=== PATIENT | female | born 1950 | race African-American/Black ===

== ENCOUNTER 2019-01-04 11:42 | Inpatient (IN) ==
--- NOTE | 2019-01-04 13:20 | Diag Imaging Result Doc PS360 ---
CHEST-PORTABLE - 01/04/2019 INDICATION: cough COMPARISON: 09/29/2017 FINDINGS: Lung volumes are severely low. There is nonspecific atelectasis or infiltrate in the lung bases particularly at the right lung base. No significant pleural effusion. Heart size is top normal. Stable densely calcified granulomas. IMPRESSION: Nonspecific findings. Electronically signed by Ryan Tamayo 01/04/2019 1:18 PM
[2019-01-04] MEDS ORDERED: NS 1,000 ML IV ONE ×2 (13:26→14:34)
[2019-01-04] MEDS ORDERED: ROCEPHIN 1 GM in NS 50 ML IV ONE (13:26)
[2019-01-04 13:27] LABS: ALLEN TEST YES; BE 0.8 mmoll (-3.0-3.0); BLOOD TYPE ARTERIAL; HCO3-(ACT) 25.4 mmoll (20.0-26.0); METHB 0.9 % (0.0-1.5); O2(CT) 18.3 mL/dL (15.0-23.0); O2HB 93.5 % (95.0-99.0); PO2(98.6) 69 mmHg (60-100); SAMPLE BLOOD; SAO2 96.3 % (95.0-100.0); THB 13.9 g/dL (11.5-17.4); pH(98.6) 7.34 (7.35-7.45)
[2019-01-04 13:29] LABS: MODALITY CANNULA; PCO2(98.6) 51 mmHg (35-45)
[2019-01-04 13:37] LABS: INR 1.14; PROTIME 15.5 Seconds (11.0-16.0)
[2019-01-04 13:38] LABS: BASO# 0.02 X1000 (0.0-0.2); BASO% 0.1 % (0.0-0.8); HEMATOCRIT 46.3 % (37.0-47.0); HEMOGLOBIN 14.5 g/dL (12.0-16.0); LYMPH# 2.08 X1000 (1.2-3.4); LYMPH% 14.6 % (20.5-51.1); MCHC 31.3 g/dL (33-37); MCV 92.6 FL (81-99); MONO# 2.74 X1000 (0.11-0.59); MONO% 19.2 % (1.7-9.3); NEUT% 66.1 % (42.2-75.2); PLT 103 X1000 (130-400); PTT 32.3 Seconds (22.3-41.8); WBC 14.24 X1000 (4.8-10.8)
[2019-01-04 13:48] LABS: CALCIUM 8.6 mg/dL (8.8-10.2); CREATININE 1.6 mg/dL (0.5-0.9); POTASSIUM 4.4 mmol/L (3.5-5.1); TOTAL BILIRUBIN 0.32 mg/dL (0.20-1.00); TOTAL PROTEIN 6.1 g/dL (6.3-8.3)
[2019-01-04 14:32] LABS: CK INDEX 1.9 (0.0-2.5); CK-MB 4.94 ng/mL (0.0-5.0)
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
[2019-01-04] MEDS ORDERED: CIPRO 400 MG/D5W 400 MG/200 ML IVPB IV ONE (14:35)
[2019-01-04] MEDS ORDERED: ZOSYN 3.375 GM in NS 50 ML IV ONE (14:36)
[2019-01-04 15:43] LABS: URINE SOURCE CATH
[2019-01-04 15:48] LABS: BILIRUBIN URINE SMALL (NEGATIVE); BLOOD URINE LARGE (NEGATIVE); COLOR YELLOW; GLUCOSE URINE NEGATIVE (NEGATIVE); KETONE URINE 10 mg/dL (NEGATIVE); LEUKOCYTES URINE SMALL (NEGATIVE); NITRITE URINE NEGATIVE (NEGATIVE); PH URINE 5.5; PROTEIN URINE 200 mg/dL (NEGATIVE); SP GRAVITY URINE 1.022; TURBIDITY URINE HAZY (CLEAR); UROBILINOGEN URINE 4 mg/dL (NORMAL)
[2019-01-04 15:50] LABS: UR EPITHELIAL CELLS >10 /HPF (<10); URINE BACTERIA NEGATIVE /HPF; URINE RBC TNTC /HPF (<10)
[2019-01-04 15:56] LABS: URINE CASTS NONE SEEN
--- NOTE | 2019-01-04 17:56 | EKG Report ---
Test Performed on : 01/04/2019 12:01:10 PM Test Reason : ED. No order in [place] Blood Pressure : / mmHG Vent. Rate : 093 BPM Atrial Rate : 093 BPM P-R Int : 098 ms QRS Dur : 072 ms QT Int : 400 ms P-R-T Axes : 053 027 070 degrees QTc Int : 497 ms Sinus rhythm. with short SC Nonspecific ST and T wave abnormality Prolonged QT Abnormal ECG When compared with ECG of 30-MAR-2016 18:43, T wave inversion no longer evident in Inferior leads T wave inversion less evident in Anterolateral leads Unconfirmed Result
[2019-01-04] MEDS ORDERED: TYLENOL PO PRN (18:33)
[2019-01-04] MEDS ORDERED: NS 1,000 ML IV SCH (18:45)
--- NOTE | 2019-01-04 19:20 | HISTORY AND PHYSICAL ---
CHIEF COMPLAINT: Altered mental status, possible sepsis, wheezing. HPI: She is a 68-year-old female basically lying in a demented state without any activities of daily living as well as instrumental activities. [facility] with above conditions. The patient was seen in the emergency room. No history was obtained from the patient or the family. Patient is nonverbal and in a vegetative state. Apparently she has azotemia, diabetes and possible aspiration pneumonia, elevated white cell count. Most of the history was reported [facility] the [facility]. PAST MEDICAL HISTORY: 1. Dementia. 2. Type 2 diabetes. 3. Depression. 4. COPD. 5. Osteoarthritis. 6. History of urinary tract infection. PAST SURGICAL HISTORY: Reported hysterectomy. MEDICATIONS: Risperdal 0.25 bedtime, Namenda 10 p.o. b.i.d., senna 1 tablet bedtime, Razadyne 16 mg at bedtime, folic acid 1 mg daily, Depakote 500 bedtime and 250 b.i.d., Prozac 20 daily, Remeron 30 at bedtime, Lantus 20 in the morning, DuoNeb q.6, Tylenol as needed. ALLERGIES: Reported to Levaquin and Flagyl. SOCIAL HISTORY: custodial residence without any activities of daily living as well as instrumental activities. FAMILY HISTORY: Unremarkable. Living will, full code. No family was here. REVIEW OF SYSTEMS: Unobtainable. PHYSICAL EXAM: Temperature is 98 degrees, pulse is 99, blood pressure 150/62, 5 feet 6, 137 pounds. HEENT: She is obtunded, confused, tongue is protruding. NECK: Supple. She has a lot of scarring skin bone from the left side of the chest, bilateral wheezing distant heart sounds. BELLY: Soft. Midline abdominal scar present. Medina was placed and diapers were present. Patient was contracted. INVESTIGATIONS: CBC. White cell count 14, hematocrit 46, platelets 103,000, PT 15, INR 1.1, PTT 32. ABG pH is 7.34, pCO2 51, PO2 69 on 36%. SMA 7 sodium 145, potassium 4.4, chloride 106, BUN 24, creatinine 1.6, CK 256, albumin 3.0. Urinalysis positive for blood. Blood cultures, urine cultures are pending. Chest x-ray nonspecific findings, poor lung volumes, infiltrate at the right lung base. EKG normal sinus, nothing acute. ASSESSMENT AND PLAN: 1. 68-year-old female admitted to the hospital with altered mental status with underlying dementia. We need to see her baseline, I am covering for Dr. Shearer. Plan is admit in [facility]. IV fluids 80 mL an hour. 2. Possible aspiration pneumonia. Will use the ceftriaxone and Zithromax. 3. Deep vein thrombosis prophylaxis with Lovenox. 4. Gastrointestinal prophylaxis with IV Protonix. 5. Reconcile home medicines. 6. Living will will be addressed. Will get more information from the [facility]. Will repeat the labs in the morning and will follow up. cc: Lars Resendez MD
[2019-01-04] MEDS: LOVENOX SUBQ SCH (20:12)
[2019-01-04] MEDS: DEPAKOTE PO SCH (20:12)
[2019-01-04] MEDS: RAZADYNE ER PO SCH (20:12)
[2019-01-04] MEDS: NAMENDA PO SCH (20:12)
[2019-01-04] MEDS: ZITHROMAX 500 MG/NS 500 MG/250 ML IVPB IV SCH (20:12)
[2019-01-04] MEDS: RISPERDAL PO SCH (20:13)
[2019-01-04] MEDS: PERICOLACE PO SCH (20:13)
[2019-01-04] MEDS: PROTONIX IV SCH (21:05)
[2019-01-04] MEDS: HUMALOG SUBQ SCH (21:06)
[2019-01-04] MEDS: REMERON PO SCH (21:18)
[2019-01-04] MEDS: DUONEB (A & A) INH SCH (21:30)
[2019-01-05] MEDS: DUONEB (A & A) INH SCH ×4 (03:40→22:56)
[2019-01-05 03:57] LABS: ALLEN TEST YES; BE -0.9 mmoll (-3.0-3.0); BLOOD TYPE ARTERIAL; HCO3-(ACT) 24.2 mmoll (20.0-26.0); METHB 1.1 % (0.0-1.5); O2(CT) 16.4 mL/dL (15.0-23.0); O2HB 97.1 % (95.0-99.0); PO2(98.6) 116 mmHg (60-100); SAMPLE BLOOD; SAO2 100.5 % (95.0-100.0); THB 11.9 g/dL (11.5-17.4); pH(98.6) 7.29 (7.35-7.45)
[2019-01-05 04:21] LABS: MODALITY CANNULA; PCO2(98.6) 55 mmHg (35-45)
[2019-01-05] MEDS: DEPAKOTE PO SCH ×4 (05:25→20:48)
[2019-01-05 05:57] LABS: HEMOGLOBIN A1C 5.1 % (4.8-6.0)
[2019-01-05] MEDS: HUMALOG SUBQ SCH ×4 (06:00→20:51)
[2019-01-05 06:08] LABS: BASO# 0.02 X1000 (0.0-0.2); BASO% 0.2 % (0.0-0.8); EOS# 0.04 X1000 (0.0-0.7); EOS% 0.3 % (0.0-10.0); HEMATOCRIT 39.3 % (37.0-47.0); HEMOGLOBIN 11.7 g/dL (12.0-16.0); IMM GRAN# 0.02 X1000 (0.0-0.04); IMM GRAN% 0.2 % (0.0-0.5); LYMPH# 3.56 X1000 (1.2-3.4); LYMPH% 27.9 % (20.5-51.1); MCH 28.5 PG (27-31); MCHC 29.8 g/dL (33-37); MCV 95.6 FL (81-99); MONO% 17.2 % (1.7-9.3); NEUT# 6.92 X1000 (1.4-6.5); NEUT% 54.2 % (42.2-75.2); PLT 62 X1000 (130-400); RBC 4.11 XMIL (4.2-5.4); RDW 15.3 % (11.5-14.5); WBC 12.76 X1000 (4.8-10.8)
[2019-01-05 06:13] LABS: CALCIUM 7.7 mg/dL (8.8-10.2); CREATININE 1.1 mg/dL (0.5-0.9)
[2019-01-05] MEDS: POTASSIUM CHLORIDE 10 MEQ in D5 NS 1,000 ML IV SCH ×2 (08:25→20:51)
[2019-01-05] MEDS: BASAGLAR SUBQ SCH (09:34)
[2019-01-05] MEDS: FOLIC ACID PO SCH (09:34)
[2019-01-05] MEDS: NAMENDA PO SCH ×2 (09:34→20:48)
[2019-01-05] MEDS: PROZAC PO SCH (09:35)
[2019-01-05] MEDS: ROCEPHIN 1 GM in NS 50 ML IV SCH (14:38)
[2019-01-05] MEDS: ZITHROMAX 500 MG/NS 500 MG/250 ML IVPB IV SCH (18:01)
[2019-01-05] MEDS: PROTONIX IV SCH (18:01)
[2019-01-05] MEDS: LOVENOX SUBQ SCH (18:01)
--- NOTE | 2019-01-05 19:28 | PROGRESS NOTE ---
DATE: 01/05/2019 SUBJECTIVE: The patient is on BiPAP machine. No family history available. There is no family around. The patient came from residential. The patient is totally obtunded. REVIEW OF SYSTEMS: None reported. OBJECTIVE: Vital Signs: Temperature is 98.5, pulse is 89, blood pressure is 130/50. The patient is on BiPAP. Lungs: Poor air entry. A lot of scarring noted over the left shoulder. Abdomen: Belly is soft, nontender. Good bowel sounds. Genitourinary: Medina catheter. In diapers. INVESTIGATIONS: White cell count 12.7, hematocrit 39, platelets 62. ABG: pH is 7.29, pCO2 of 55, pO2 is 116 on 36%. Sodium 152, potassium 4.0, chloride 118, BUN 30, creatinine 1.1. Urinalysis positive for infection. Urine cultures, blood cultures are pending. ASSESSMENT AND PLAN: 1. Altered mental status due to metabolic encephalopathy with underlying dementia. 2. Pickwickian syndrome and on BiPAP machine, decrease the FiO2 at 2 L. 3. Possible aspiration and urinary tract infection. Intravenous ceftriaxone and Zithromax. 4. Hypernatremic dehydration. Change the IV fluids to D5 half-normal saline with potassium 80 mL/hour. 5. Deep vein thrombosis prophylaxis with Lovenox. 6. Thrombocytopenia. Continue to monitor while she is on Lovenox. 7. Gastrointestinal prophylaxis with IV Protonix. We will communicate with the family tomorrow about the Living Will and follow up. Repeat the labs in the morning. LEVEL OF DOCUMENTATION: 25 minutes. cc: Lars Resendez MD
[2019-01-05] MEDS: RISPERDAL PO SCH (20:48)
[2019-01-05] MEDS: REMERON PO SCH (20:48)
[2019-01-05] MEDS: PERICOLACE PO SCH (20:48)
[2019-01-05] MEDS: RAZADYNE ER PO SCH (20:51)
[2019-01-06] MEDS: DUONEB (A & A) INH SCH ×4 (03:32→22:46)
[2019-01-06 05:31] LABS: ALLEN TEST YES; BE 0.7 mmoll (-3.0-3.0); BLOOD TYPE ARTERIAL; HCO3-(ACT) 25.5 mmoll (20.0-26.0); METHB 0.9 % (0.0-1.5); O2(CT) 14.3 mL/dL (15.0-23.0); O2HB 95.6 % (95.0-99.0); PO2(98.6) 74 mmHg (60-100); SAMPLE BLOOD; SAO2 98.1 % (95.0-100.0); THB 10.6 g/dL (11.5-17.4); pH(98.6) 7.31 (7.35-7.45)
[2019-01-06] MEDS: HUMALOG SUBQ SCH ×4 (06:11→20:30)
[2019-01-06 06:12] LABS: AGAP 6; BUN 24 mg/dL (8-22); CALCIUM 7.3 mg/dL (8.8-10.2); CHLORIDE 121 mmol/L (98-107); COSMO 310; CREATININE 0.6 mg/dL (0.5-0.9); ESTIMATED GFR > 60; GLUCOSE 137 mg/dL (70-104); SODIUM 153 mmol/L (136-145); TCO2 26 mmol/L (25-35)
[2019-01-06] MEDS: DEPAKOTE PO SCH ×3 (06:13→20:24)
[2019-01-06 06:15] LABS: BASO# 0.02 X1000 (0.0-0.2); BASO% 0.3 % (0.0-0.8); EOS# 0.06 X1000 (0.0-0.7); EOS% 0.8 % (0.0-10.0); HEMATOCRIT 35.5 % (37.0-47.0); HEMOGLOBIN 10.2 g/dL (12.0-16.0); IMM GRAN# 0.02 X1000 (0.0-0.04); IMM GRAN% 0.3 % (0.0-0.5); LYMPH# 2.61 X1000 (1.2-3.4); LYMPH% 35.8 % (20.5-51.1); MCH 27.7 PG (27-31); MCHC 28.7 g/dL (33-37); MCV 96.5 FL (81-99); MONO# 1.22 X1000 (0.11-0.59); MONO% 16.7 % (1.7-9.3); NEUT# 3.36 X1000 (1.4-6.5); NEUT% 46.1 % (42.2-75.2); PLT 62 X1000 (130-400); RBC 3.68 XMIL (4.2-5.4); RDW 15.5 % (11.5-14.5); WBC 7.29 X1000 (4.8-10.8)
[2019-01-06 06:45] LABS: MODALITY BI PAP; PCO2(98.6) 55 mmHg (35-45)
[2019-01-06] MEDS: POTASSIUM CHLORIDE 10 MEQ in D5 NS 1,000 ML IV SCH ×2 (08:54→22:58)
[2019-01-06] MEDS: NAMENDA PO SCH ×2 (08:55→20:23)
[2019-01-06] MEDS: FOLIC ACID PO SCH (08:55)
[2019-01-06] MEDS: BASAGLAR SUBQ SCH (08:55)
[2019-01-06] MEDS: PROZAC PO SCH (08:56)
[2019-01-06] MEDS: ROCEPHIN 1 GM in NS 50 ML IV SCH (13:18)
[2019-01-06] MEDS: ZITHROMAX 500 MG/NS 500 MG/250 ML IVPB IV SCH (18:04)
--- NOTE | 2019-01-06 19:45 | PROGRESS NOTE ---
DATE: 01/06/2019 SUBJECTIVE: The patient is still obtunded, on BiPAP machine. No family is around. Not eating well. EXAMINATION: Vital Signs: Temp is 97.9, pulse is 79, blood pressure is 131/71. HEENT: On BiPAP machine. Poor air entry. Abdomen: Belly is soft. She is in diapers. Neurologic: Hard to assess neurologic exam. INVESTIGATIONS: CBC: White cell count 7.2, hematocrit 35, platelets 62,000. ABG: pH is 7.31, pCO2 55, PO2 74, on BiPAP machine. Sodium 153, potassium 4.0, BUN 24, creatinine 0.6. Urine cultures and blood cultures are negative. ASSESSMENT AND PLAN: 1. Altered mental status due to underlying chronic dementia and metabolic encephalopathy, hyponatremia, hypercarbia. On BiPAP as needed. 2. Living will was still full code. 3. Hyponatremia. Increasing IV fluids to 125 mL/h. Will communicate with caregivers about her medical condition. 4. Deconditioning, with lack of quality. We will address the issues. 5. Consider palliative care consult with Federica in the hospital. LEVEL OF DOCUMENTATION: 25 minutes. cc: Lars Resendez MD
[2019-01-06] MEDS: PROTONIX IV SCH (20:24)
[2019-01-06] MEDS: RISPERDAL PO SCH (20:24)
[2019-01-06] MEDS: RAZADYNE ER PO SCH (20:24)
[2019-01-06] MEDS: REMERON PO SCH (20:24)
[2019-01-06] MEDS: PERICOLACE PO SCH (20:24)
[2019-01-06] MEDS: LOVENOX SUBQ SCH (20:24)
[2019-01-07] MEDS: DUONEB (A & A) INH SCH ×4 (03:34→21:24)
[2019-01-07 05:24] LABS: BASO# 0.03 X1000 (0.0-0.2); BASO% 0.4 % (0.0-0.8); EOS# 0.11 X1000 (0.0-0.7); EOS% 1.4 % (0.0-10.0); HEMATOCRIT 35.2 % (37.0-47.0); HEMOGLOBIN 10.2 g/dL (12.0-16.0); LYMPH# 3.97 X1000 (1.2-3.4); LYMPH% 50.7 % (20.5-51.1); MCH 28.3 PG (27-31); MCV 97.5 FL (81-99); MONO# 0.98 X1000 (0.11-0.59); MONO% 12.5 % (1.7-9.3); NEUT# 2.74 X1000 (1.4-6.5); PLT 70 X1000 (130-400); RBC 3.61 XMIL (4.2-5.4); RDW 15.4 % (11.5-14.5); WBC 7.83 X1000 (4.8-10.8)
[2019-01-07 05:32] LABS: ESTIMATED GFR > 60
[2019-01-07 05:49] LABS: AGAP 5; BUN 13 mg/dL (8-22); CALCIUM 7.8 mg/dL (8.8-10.2); CHLORIDE 124 mmol/L (98-107); COSMO 310; CREATININE 0.5 mg/dL (0.5-0.9); GLUCOSE 154 mg/dL (70-104); POTASSIUM 3.7 mmol/L (3.5-5.1); SODIUM 155 mmol/L (136-145); TCO2 26 mmol/L (25-35)
[2019-01-07] MEDS: POTASSIUM CHLORIDE 10 MEQ in D5 NS 1,000 ML IV SCH ×3 (05:58→21:38)
[2019-01-07] MEDS: DEPAKOTE PO SCH ×3 (06:00→21:36)
[2019-01-07] MEDS: HUMALOG SUBQ SCH ×4 (06:16→21:36)
[2019-01-07] MEDS: PROZAC PO SCH (08:51)
[2019-01-07] MEDS: FOLIC ACID PO SCH (08:51)
[2019-01-07] MEDS: NAMENDA PO SCH ×2 (08:51→21:37)
[2019-01-07] MEDS: BASAGLAR SUBQ SCH ×2 (09:21→09:25)
[2019-01-07] MEDS: ROCEPHIN 1 GM in NS 50 ML IV SCH (13:23)
--- NOTE | 2019-01-07 19:28 | PROGRESS NOTE ---
DATE: 01/07/2019 SUBJECTIVE: The patient is more awake and still on BiPAP this morning and apparently the nurses are telling she is a little better. OBJECTIVE: Temperature is 98 degrees, pulse 74, blood pressure 143/60.HEENT: On BiPAP machine. Chest: Poor air entry. Heart: Sounds are regular. Belly: Is soft, nontender. Neurological: Unable to assess neurological exam. LABS: CBC. White cell count 7.8, hematocrit 35, platelets 70,000. SMA 7, sodium 155, potassium 3.7, chloride 124, BUN 15, creatinine 0.5, glucose 195. ASSESSMENT AND PLAN: 1. Altered mental status with chronic dementia stable. 2. Acute respiratory failure on BiPAP. 3. Patient apparently passed the swallowing . Puree diet as needed. 4. Hypernatremic dehydration. Continue D5 normal saline with potassium 125 and follow up on daily labs and diabetes on Lantus 20 units at bedtime. 5. Patient has been on IV ceftriaxone and Zithromax for aspiration pneumonitis. 6. Deep vein thrombosis prophylaxis with Lovenox. Living will is full code. Will follow up on the labs in the morning and continue BiPAP as needed in the night time. LEVEL OF DOCUMENTATION: 25 minutes. cc: Lars Resendez MD MTDD
[2019-01-07] MEDS: ZITHROMAX 500 MG/NS 500 MG/250 ML IVPB IV SCH (21:36)
[2019-01-07] MEDS: PERICOLACE PO SCH (21:37)
[2019-01-07] MEDS: PROTONIX IV SCH (21:37)
[2019-01-07] MEDS: LOVENOX SUBQ SCH (21:37)
[2019-01-07] MEDS: RAZADYNE ER PO SCH (21:37)
[2019-01-07] MEDS: REMERON PO SCH (21:37)
[2019-01-07] MEDS: RISPERDAL PO SCH (21:38)
[2019-01-08] MEDS: DUONEB (A & A) INH SCH ×4 (03:38→21:00)
[2019-01-08 06:14] LABS: BASO# 0.03 X1000 (0.0-0.2); BASO% 0.4 % (0.0-0.8); EOS# 0.25 X1000 (0.0-0.7); EOS% 3.2 % (0.0-10.0); HEMATOCRIT 37.7 % (37.0-47.0); HEMOGLOBIN 11.1 g/dL (12.0-16.0); LYMPH# 4.34 X1000 (1.2-3.4); LYMPH% 55.6 % (20.5-51.1); MCH 28.2 PG (27-31); MCHC 29.4 g/dL (33-37); MCV 95.9 FL (81-99); MONO# 1.02 X1000 (0.11-0.59); MONO% 13.1 % (1.7-9.3); NEUT# 2.16 X1000 (1.4-6.5); NEUT% 27.7 % (42.2-75.2); PLT 80 X1000 (130-400); RBC 3.93 XMIL (4.2-5.4); RDW 14.9 % (11.5-14.5)
[2019-01-08 06:21] LABS: AGAP 9; BUN 3 mg/dL (8-22); CALCIUM 7.9 mg/dL (8.8-10.2); CHLORIDE 116 mmol/L (98-107); COSMO 300; CREATININE 0.4 mg/dL (0.5-0.9); ESTIMATED GFR > 60; GLUCOSE 126 mg/dL (70-104); POTASSIUM 3.5 mmol/L (3.5-5.1); SODIUM 152 mmol/L (136-145); TCO2 27 mmol/L (25-35)
[2019-01-08] MEDS: DEPAKOTE PO SCH ×3 (06:49→22:00)
[2019-01-08] MEDS: POTASSIUM CHLORIDE 10 MEQ in D5 NS 1,000 ML IV SCH ×2 (06:49→17:35)
[2019-01-08] MEDS: HUMALOG SUBQ SCH ×4 (07:33→22:52)
[2019-01-08] MEDS: FOLIC ACID PO SCH (08:37)
[2019-01-08] MEDS: NAMENDA PO SCH ×3 (08:37→22:00)
[2019-01-08] MEDS: PROZAC PO SCH (08:37)
[2019-01-08] MEDS: BASAGLAR SUBQ SCH (08:40)
[2019-01-08] MEDS ORDERED: INSULIN PEN NEEDLES ONE (08:41)
[2019-01-08] MEDS: ROCEPHIN 1 GM in NS 50 ML IV SCH (14:18)
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
[2019-01-08] MEDS: RAZADYNE ER PO SCH (21:59)
[2019-01-08] MEDS: ZITHROMAX 500 MG/NS 500 MG/250 ML IVPB IV SCH (21:59)
[2019-01-08] MEDS: LOVENOX SUBQ SCH (22:00)
[2019-01-08] MEDS: RISPERDAL PO SCH (22:00)
[2019-01-08] MEDS: PERICOLACE PO SCH (22:00)
[2019-01-08] MEDS: REMERON PO SCH (22:01)
[2019-01-08] MEDS: PROTONIX IV SCH (22:01)
[2019-01-09] MEDS: DUONEB (A & A) INH SCH ×4 (03:28→21:24)
[2019-01-09] MEDS: POTASSIUM CHLORIDE 10 MEQ in D5 NS 1,000 ML IV SCH ×4 (04:50→23:10)
[2019-01-09 05:01] LABS: ALLEN TEST YES; BE 7.8 mmoll (-3.0-3.0); BLOOD TYPE ARTERIAL; METHB 1.6 % (0.0-1.5); O2(CT) 12.8 mL/dL (15.0-23.0); O2HB 95.1 % (95.0-99.0); PO2(98.6) 80 mmHg (60-100); SAMPLE BLOOD; SAO2 98.1 % (95.0-100.0); THB 9.5 g/dL (11.5-17.4); pH(98.6) 7.41 (7.35-7.45)
[2019-01-09 05:02] LABS: PCO2(98.6) 53 mmHg (35-45)
[2019-01-09 05:03] LABS: MODALITY BI PAP
[2019-01-09] MEDS: DEPAKOTE PO SCH ×3 (06:05→20:56)
[2019-01-09 06:11] LABS: BASO# 0.02 X1000 (0.0-0.2); BASO% 0.3 % (0.0-0.8); EOS# 0.21 X1000 (0.0-0.7); EOS% 3.1 % (0.0-10.0); HEMATOCRIT 36.1 % (37.0-47.0); IMM GRAN# 0.04 X1000 (0.0-0.04); IMM GRAN% 0.6 % (0.0-0.5); LYMPH# 3.67 X1000 (1.2-3.4); LYMPH% 54.7 % (20.5-51.1); MCH 28.4 PG (27-31); MCHC 30.5 g/dL (33-37); MCV 93.3 FL (81-99); MONO# 1.01 X1000 (0.11-0.59); MONO% 15.1 % (1.7-9.3); NEUT# 1.76 X1000 (1.4-6.5); NEUT% 26.2 % (42.2-75.2); PLT 82 X1000 (130-400); RBC 3.87 XMIL (4.2-5.4); RDW 13.8 % (11.5-14.5); WBC 6.71 X1000 (4.8-10.8)
[2019-01-09 06:31] LABS: AGAP 9; BUN 2 mg/dL (8-22); CALCIUM 7.4 mg/dL (8.8-10.2); CHLORIDE 109 mmol/L (98-107); COSMO 292; CREATININE 0.5 mg/dL (0.5-0.9); ESTIMATED GFR > 60; GLUCOSE 166 mg/dL (70-104); POTASSIUM 3.3 mmol/L (3.5-5.1); SODIUM 147 mmol/L (136-145); TCO2 29 mmol/L (25-35)
[2019-01-09] MEDS: HUMALOG SUBQ SCH ×4 (06:31→22:04)
--- NOTE | 2019-01-09 07:24 | Diag Imaging Result Doc PS360 ---
EXAM: CHEST-1 VIEW 01/09/2019 HISTORY: SOB TECHNIQUE: AP portable at 0618 COMMENT: There is increased alveolar opacity laterally in the left base compared to 01/04/2019. There is hazy opacity over the right base. IMPRESSION: Worsened pulmonary edema and/or pneumonia. Electronically signed by Gregg Dee 01/09/2019 7:21 AM
[2019-01-09] MEDS: BASAGLAR SUBQ SCH (09:32)
[2019-01-09] MEDS: FOLIC ACID PO SCH ×2 (09:33→09:50)
[2019-01-09] MEDS: NAMENDA PO SCH ×2 (09:50→20:55)
[2019-01-09] MEDS: PROZAC PO SCH (09:50)
--- NOTE | 2019-01-09 13:04 | PROGRESS NOTE ---
DATE: 01/09/2019 SUBJECTIVE: The patient is awake, still confused, not able to feeding with some choking spells. Waiting for Speech Therapy evaluation. OBJECTIVE: General: The patient is leaning towards the right side. Protruding tongue. Vitals: Temperature is 97.8 degrees, pulse is 76, blood pressure is 170/84, 3 L nasal cannula. Chest: Bilateral air entry. Heart: Sounds are regular. Abdomen: Belly is soft, nontender. Neurologic: Moribund state. IMAGING: Chest x-ray stable. LABORATORY: CBC: White cell count 6.7, hematocrit 36, platelets 82,000. ABG: pH is 7.41, pCO2 of 53, PO2 80, BiPAP on 30%. Sodium 147, potassium 3.3, and glucose 168. ASSESSMENT AND PLAN: 1. Altered mental status due to metabolic encephalopathy. 2. Acute respiratory failure on BiPAP, using at night time. 3. Hyponatremic dehydration. Continue D5 half-normal saline. 4. Hypokalemia, replace the potassium. 5. Patient is high risk for aspiration. Continue present antibiotics with ceftriaxone and Zithromax and waiting for Speech Therapy evaluation. No family was here. Continue to monitor. Dr. Shearer is going to follow up in the morning. LEVEL OF DOCUMENTATION: 25 minutes. cc: Lars Resendez MD MTDD
[2019-01-09] MEDS: ROCEPHIN 1 GM in NS 50 ML IV SCH (13:40)
[2019-01-09] MEDS: POTASSIUM CHLORIDE 20 MEQ/SWI 20 MEQ/100 ML IVPB IV SCH ×2 (14:12→17:26)
[2019-01-09] MEDS: REMERON PO SCH (20:48)
[2019-01-09] MEDS: LOVENOX SUBQ SCH (20:48)
[2019-01-09] MEDS: ZITHROMAX 500 MG/NS 500 MG/250 ML IVPB IV SCH (20:48)
[2019-01-09] MEDS: PROTONIX IV SCH (20:49)
[2019-01-09] MEDS: RAZADYNE ER PO SCH (20:55)
[2019-01-09] MEDS: PERICOLACE PO SCH (20:55)
[2019-01-09] MEDS: RISPERDAL PO SCH (22:04)
[2019-01-10] MEDS: DUONEB (A & A) INH SCH ×4 (04:00→22:25)
[2019-01-10 06:04] LABS: BASO# 0.02 X1000 (0.0-0.2); BASO% 0.3 % (0.0-0.8); EOS# 0.18 X1000 (0.0-0.7); EOS% 2.9 % (0.0-10.0); HEMATOCRIT 36.4 % (37.0-47.0); HEMOGLOBIN 10.9 g/dL (12.0-16.0); IMM GRAN# 0.08 X1000 (0.0-0.04); IMM GRAN% 1.3 % (0.0-0.5); LYMPH# 3.65 X1000 (1.2-3.4); MCH 27.8 PG (27-31); MCHC 29.9 g/dL (33-37); MCV 92.9 FL (81-99); MONO# 0.91 X1000 (0.11-0.59); MONO% 14.5 % (1.7-9.3); NEUT# 1.45 X1000 (1.4-6.5); PLT 81 X1000 (130-400); RBC 3.92 XMIL (4.2-5.4); RDW 13.5 % (11.5-14.5); WBC 6.29 X1000 (4.8-10.8)
[2019-01-10] MEDS: DEPAKOTE PO SCH ×3 (06:12→23:41)
[2019-01-10] MEDS: HUMALOG SUBQ SCH ×4 (06:13→23:43)
[2019-01-10 06:36] LABS: AGAP 8; BUN 2 mg/dL (8-22); CALCIUM 7.7 mg/dL (8.8-10.2); CHLORIDE 116 mmol/L (98-107); COSMO 302; CREATININE 0.5 mg/dL (0.5-0.9); ESTIMATED GFR > 60; GLUCOSE 133 mg/dL (70-104); POTASSIUM 3.8 mmol/L (3.5-5.1); SODIUM 153 mmol/L (136-145); TCO2 29 mmol/L (25-35)
[2019-01-10] MEDS: POTASSIUM CHLORIDE 10 MEQ in D5 NS 1,000 ML IV SCH ×2 (06:41→14:17)
--- NOTE | 2019-01-10 07:40 | Diag Imaging Result Doc PS360 ---
EXAM: CHEST-1 VIEW - 01/10/2019 HISTORY: SOB TECHNIQUE: Portable chest COMPARISON: 01/09/2019 FINDINGS: There is stable mild cardiomegaly. There has been some interval decrease in ill-defined bilateral lower lung infiltrates or edema. There is no substantial pleural effusion or pneumothorax identified. IMPRESSION: Some decrease in ill-defined bilateral lower lung infiltrates or edema. Electronically signed by Prosper Brown 01/10/2019 7:38 AM
[2019-01-10] MEDS: BASAGLAR SUBQ SCH (08:14)
[2019-01-10] MEDS: PROZAC PO SCH (08:22)
[2019-01-10] MEDS: FOLIC ACID PO SCH (08:22)
[2019-01-10] MEDS: NAMENDA PO SCH ×2 (08:22→23:41)
--- NOTE | 2019-01-10 09:46 | PROGRESS NOTE ---
DATE: 01/10/2019 SUBJECTIVE: The patient is still having some pulmonary congestion. Bilateral pneumonia is slowly improving. She is on IV Rocephin as well as IV azithromycin. She also gets IV Protonix and her regular medications. Lungs reveal basal rales. We will repeat chest x-ray. We will continue with the current management. cc: MD Lars Olivia MD
[2019-01-10] MEDS: ROCEPHIN 1 GM in NS 50 ML IV SCH (15:00)
[2019-01-10] MEDS: RISPERDAL PO SCH (23:40)
[2019-01-10] MEDS: REMERON PO SCH (23:40)
[2019-01-10] MEDS: RAZADYNE ER PO SCH (23:41)
[2019-01-10] MEDS: ZITHROMAX 500 MG/NS 500 MG/250 ML IVPB IV SCH (23:42)
[2019-01-10] MEDS: LOVENOX SUBQ SCH (23:42)
[2019-01-10] MEDS: PROTONIX IV SCH (23:42)
[2019-01-10] MEDS: PERICOLACE PO SCH (23:42)
[2019-01-10] MEDS: SODIUM CHLORIDE 0.9% INJ SCH (23:42)
[2019-01-11] MEDS: DUONEB (A & A) INH SCH ×4 (03:35→22:20)
[2019-01-11] MEDS: POTASSIUM CHLORIDE 10 MEQ in D5 NS 1,000 ML IV SCH ×3 (06:40→18:53)
[2019-01-11] MEDS: DEPAKOTE PO SCH ×3 (06:45→22:35)
[2019-01-11 06:54] LABS: BASO# 0.03 X1000 (0.0-0.2); BASO% 0.4 % (0.0-0.8); EOS# 0.21 X1000 (0.0-0.7); EOS% 2.7 % (0.0-10.0); HEMATOCRIT 34.1 % (37.0-47.0); HEMOGLOBIN 10.5 g/dL (12.0-16.0); IMM GRAN% 1.3 % (0.0-0.5); LYMPH# 4.34 X1000 (1.2-3.4); LYMPH% 56.8 % (20.5-51.1); MCH 28.5 PG (27-31); MCHC 30.8 g/dL (33-37); MCV 92.7 FL (81-99); MONO# 0.96 X1000 (0.11-0.59); MONO% 12.6 % (1.7-9.3); MPV 14.1 FL (7.4-10.4); NEUT% 26.2 % (42.2-75.2); PLT 96 X1000 (130-400); RBC 3.68 XMIL (4.2-5.4); RDW 13.7 % (11.5-14.5); WBC 7.64 X1000 (4.8-10.8)
[2019-01-11 07:02] LABS: AGAP 7; BUN 3 mg/dL (8-22); CALCIUM 7.5 mg/dL (8.8-10.2); CHLORIDE 112 mmol/L (98-107); COSMO 292; CREATININE 0.5 mg/dL (0.5-0.9); ESTIMATED GFR > 60; GLUCOSE 111 mg/dL (70-104); POTASSIUM 3.7 mmol/L (3.5-5.1); SODIUM 148 mmol/L (136-145); TCO2 29 mmol/L (25-35)
[2019-01-11] MEDS: HUMALOG SUBQ SCH ×4 (07:03→22:35)
[2019-01-11] MEDS: PROZAC PO SCH (09:07)
[2019-01-11] MEDS: FOLIC ACID PO SCH (09:07)
[2019-01-11] MEDS: NAMENDA PO SCH ×2 (09:07→22:35)
[2019-01-11] MEDS: BASAGLAR SUBQ SCH (09:08)
--- NOTE | 2019-01-11 10:27 | Diag Imaging Result Doc PS360 ---
CHEST-2 VIEWS - 01/11/2019 INDICATION: pneumonia follow up COMPARISON: 01/10/2019 FINDINGS: There has been improvement in the ill-defined opacity or infiltrate in the right lung base. No new infiltrates. Heart size and pulmonary vascularity remains borderline. IMPRESSION: Improvement in the right basilar opacity or infiltrate. Electronically signed by Ryan Tamayo 01/11/2019 10:25 AM
[2019-01-11] MEDS: ROCEPHIN 1 GM in NS 50 ML IV SCH (15:08)
--- NOTE | 2019-01-11 16:19 | PROGRESS NOTE ---
DATE: 01/11/2019 SUBJECTIVE: The patient is still recovering from pneumonia. Her lungs are clear except for some basal congestion. Chest x-ray results are not back. Overall condition is slowly improving. We will continue the current management. -6 cc: MD Lars Olivia MD
[2019-01-11] MEDS: ZITHROMAX 500 MG/NS 500 MG/250 ML IVPB IV SCH (22:33)
[2019-01-11] MEDS: LOVENOX SUBQ SCH (22:34)
[2019-01-11] MEDS: PROTONIX IV SCH (22:34)
[2019-01-11] MEDS: PERICOLACE PO SCH (22:34)
[2019-01-11] MEDS: RISPERDAL PO SCH (22:34)
[2019-01-11] MEDS: SODIUM CHLORIDE 0.9% INJ SCH (22:34)
[2019-01-11] MEDS: REMERON PO SCH (22:35)
[2019-01-11] MEDS: RAZADYNE ER PO SCH (22:35)
[2019-01-12] MEDS: DUONEB (A & A) INH SCH ×2 (03:40→09:55)
[2019-01-12] MEDS: POTASSIUM CHLORIDE 10 MEQ in D5 NS 1,000 ML IV SCH ×2 (06:25→13:28)
[2019-01-12] MEDS: DEPAKOTE PO SCH (06:27)
[2019-01-12] MEDS: HUMALOG SUBQ SCH ×2 (06:27→13:03)
--- NOTE | 2019-01-12 09:16 | PROGRESS NOTE ---
DATE: 01/12/2019 Ms. Delgadillo is feeling better. Vital signs are stable. Lungs sound much clearer. Repeat chest x-ray shows further improvement in the right lower lobe infiltrate. We will discharge her today back to the shelter. -8 cc: MD Lars Olivia MD
[2019-01-12] MEDS: NAMENDA PO SCH (09:30)
[2019-01-12] MEDS: PROZAC PO SCH (09:30)
[2019-01-12] MEDS: FOLIC ACID PO SCH (09:30)
[2019-01-12] MEDS: BASAGLAR SUBQ SCH ×2 (09:31→09:36)
--- NOTE | 2019-01-12 09:49 | DISCHARGE SUMMARY ---
ADMISSION DATE: 01/04/2019 DISCHARGE DATE: 01/12/2019 HOSPITAL COURSE: Ms. Delgadillo is a 68-year-old female resident of [facility] who was admitted with severe shortness of breath, cough with expectoration. She had bilateral pneumonia. Chest x-rays were repeated numerous times and the last chest x-ray showed significant improvement in the right lower lobe infiltrate. OTHER LABORATORY DATA IN THE HOSPITAL: CBC showed white count was normal, hemoglobin 10.5. INR was 1.14. Arterial blood gases revealed pH 7.34, pCO2 was around 55, PO2 was around 80. Electrolytes were normal. Blood sugars were around 124, 128. Urinalysis revealed 10 to 20 WBCs and too numerous RBCs. The culture studies for urine culture and blood cultures were negative. COURSE IN THE HOSPITAL: She was treated with IV Rocephin as well as IV as azithromycin, which were continued for several days. She was given respiratory therapy. She has improved significantly and will be discharged today. FINAL DIAGNOSIS: 1. Pneumonia. 2. History of dementia. 3. The patient has degenerative disk disease in the lumbar spine. 4. She has maturity onset diabetes. PLAN: We will discharge her today to [facility]. I will follow her up there. cc: MD Lars Olivia MD
[2019-01-12] MEDS ORDERED: DULCOLAX PR ONE (10:08)
[2019-01-12 12:36] VITALS: BP 179/91
== END 2019-01-12 14:01 | DRG 177 ==
LOC: SUPCPDRO → ED 11:42 → EDIPHOLD 15:28 → 3S 16:13 → 4N 01-10 11:26
PROVIDERS: ADMIT Internal Medicine; ATTEND Internal Medicine
CPT/HCPCS: 51702; 71010; 71020; 71045; 71046; 80048; 80053; 81001; 82550; 82553; 82805; 82948; 83036; 83605; 84484; 85025; 85610; 85730; 87040; 87088; 92610; 93005; 94640; 94660; 94761; 94762; 96361; 96365; 96367; 99285; A9270; C9113; J0456; J0696; J0744; J1650; J1815; J2543; J3480; J7030; J7042; S0164; XXXXX

== ENCOUNTER 2019-01-23 19:36 | Inpatient (IN) ==
--- NOTE | 2019-01-23 20:19 | Diag Imaging Result Doc PS360 ---
EXAM: CT HEAD W/O CONTRAST INDICATION: ams TECHNIQUE: This exam was performed using automated exposure control, adjustment of mA or kV according to patient size, and/or use of iterative reconstruction technique. COMPARISON: 03/30/2016 FINDINGS: There is stable ventriculomegaly likely due to central atrophy or normal pressure hydrocephalus. There is patchy low attenuation in the periventricular and subcortical white matter suggesting moderate microangiopathy, stable. There is no definite acute infarct given the limited sensitivity of CT versus MRI. There is no discrete intracranial mass, mass effect, or intracranial hemorrhage. The surrounding soft tissues and bony structures are essentially unremarkable. IMPRESSION: Stable chronic changes as described above but no definite acute intracranial pathology. Electronically signed by Ray Booker 01/23/2019 8:17 PM
--- NOTE | 2019-01-23 20:21 | Diag Imaging Result Doc PS360 ---
EXAM: CHEST-2 VIEWS INDICATION: ams TECHNIQUE: 2 views COMPARISON: 01/11/2019 FINDINGS: There is evidence of prior granulomatous disease, stable. The ill-defined infiltrate at the right lung base seen previously has grossly resolved by plain radiograph. The lungs appear to be clear, otherwise. There is no discrete pleural fluid collection or pneumothorax. The cardiomediastinal silhouette and central vasculature are grossly unremarkable. IMPRESSION: No evidence of acute pathology by plain radiograph. Electronically signed by Ray Booker 01/23/2019 8:19 PM
[2019-01-23 21:13] LABS: BASO# 0.02 X1000 (0.0-0.2); BASO% 0.3 % (0.0-0.8); EOS# 0.05 X1000 (0.0-0.7); EOS% 0.8 % (0.0-10.0); HEMATOCRIT 42.4 % (37.0-47.0); HEMOGLOBIN 13.1 g/dL (12.0-16.0); IMM GRAN# 0.03 X1000 (0.0-0.04); IMM GRAN% 0.5 % (0.0-0.5); LYMPH# 3.07 X1000 (1.2-3.4); LYMPH% 50.8 % (20.5-51.1); MCH 28.4 PG (27-31); MCHC 30.9 g/dL (33-37); MCV 91.8 FL (81-99); MONO# 0.78 X1000 (0.11-0.59); MONO% 12.9 % (1.7-9.3); MPV 13.2 FL (7.4-10.4); NEUT# 2.09 X1000 (1.4-6.5); NEUT% 34.7 % (42.2-75.2); PLT 187 X1000 (130-400); RBC 4.62 XMIL (4.2-5.4); RDW 15.5 % (11.5-14.5); WBC 6.04 X1000 (4.8-10.8)
[2019-01-23 21:42] LABS: AGAP 9; ALB/GLOB RATIO 0.9; ALBUMIN 3.2 g/dL (3.5-5.0); ALKALINE PHOSPHATASE 89 U/L (32-104); BUN 10 mg/dL (8-22); C REACTIVE PROT QUANT 2.54 mg/L (0.00-5.00); CALCIUM 8.5 mg/dL (8.8-10.2); CHLORIDE 108 mmol/L (98-107); CK PROFILE 82 U/L (24-173); COSMO 289; CREATININE 0.6 mg/dL (0.5-0.9); ESTIMATED GFR > 60; GLUCOSE 62 mg/dL (70-104); GOT 24 U/L (10-30); GPT 12 U/L (10-36); MAGNESIUM 1.7 mg/dL (1.5-2.7); PHOSPHORUS 3.1 mg/dL (2.7-4.5); POTASSIUM 3.6 mmol/L (3.5-5.1); SODIUM 147 mmol/L (136-145); TCO2 30 mmol/L (25-35); TOTAL BILIRUBIN 0.23 mg/dL (0.20-1.00); TOTAL PROTEIN 6.7 g/dL (6.3-8.3)
[2019-01-23] MEDS ORDERED: NS 1,000 ML IV ONE (21:52)
[2019-01-23] MEDS ORDERED: D50W SYRINGE IV ONE (22:55)
[2019-01-24 00:15] LABS: URINE SOURCE CATH
[2019-01-24 00:22] LABS: BILIRUBIN URINE NEGATIVE (NEGATIVE); BLOOD URINE NEGATIVE (NEGATIVE); COLOR YELLOW; GLUCOSE URINE TRACE mg/dL (NEGATIVE); KETONE URINE 10 mg/dL (NEGATIVE); LEUKOCYTES URINE NEGATIVE (NEGATIVE); NITRITE URINE NEGATIVE (NEGATIVE); PH URINE 5.5; PROTEIN URINE TRACE mg/dL (NEGATIVE); SP GRAVITY URINE 1.022; TURBIDITY URINE CLEAR (CLEAR); UR EPITHELIAL CELLS <10 /HPF (<10); URINE BACTERIA NEGATIVE /HPF; URINE RBC <10 /HPF (<10); URINE WBC <10 /HPF (<10); UROBILINOGEN URINE NORMAL (NORMAL)
--- NOTE | 2019-01-24 00:40 | HISTORY AND PHYSICAL ---
PRIMARY CARE PHYSICIAN: Dr. Shearer. CHIEF COMPLAINT: Unresponsive. HISTORY OF PRESENTING ILLNESS: A 68-year-old female with a history of multiple medical problems to include diabetes mellitus type 2, COPD, hypertension, dysphagia, dementia, who was brought from [facility] [place] due to patient being unresponsive. The patient was evaluated in the emergency department. She was found to be hypoglycemic. She was given an ampule of D50. She had some improvement. However, she still remained somewhat lethargic and somnolent. Due to her presenting symptoms, she will require admission for further management. At the time of my examination, patient seemed somewhat lethargic and not much history could be obtained from her. Remainder of history is obtained from previous records. PAST MEDICAL HISTORY: Includes diabetes mellitus type 2, COPD, hypertension, dysphagia, dementia, anemia, turner on face. PAST SURGICAL HISTORY: Hysterectomy. ALLERGIES: Levaquin and metronidazole. CURRENT MEDICATIONS: Include Depakote 250 mg p.o. b.i.d. and 500 mg p.o. at bedtime, Prozac 40 mg p.o. daily, folic acid 1 mg p.o. daily, Razadyne ER 16 mg p.o. at bedtime, Lantus 20 units subcutaneous q.a.m., memantine 20 mg p.o. daily, Remeron 15 mg p.o. at bedtime, Risperdal 0.5 mg p.o. b.i.d., rosuvastatin 5 mg p.o. daily. SOCIAL HISTORY: No history of smoking, alcohol or illicit drug use. Currently in a long term at [facility] [place]. FAMILY HISTORY: Unknown. REVIEW OF SYSTEMS: Unable to obtain due to patient being lethargic. PHYSICAL EXAMINATION: GENERAL: The patient is resting comfortably, but still somewhat confused and lethargic. VITAL SIGNS: Temperature 98.6 degrees, pulse 76, respiration 12, blood pressure 176/86. HEENT: Atraumatic, normocephalic. PERRLA. NECK: No masses. CHEST: Clear to auscultation. CARDIOVASCULAR: Regular rate and rhythm. ABDOMEN: Soft, positive bowel sounds. EXTREMITIES: No edema. NEUROLOGIC: She is awake, and arousable and oriented x1. GENITOURINARY: No bladder distention. SKIN: Warm. LABORATORIES AND STUDIES: Sodium 147, potassium 3.6, chloride 108, CO2 is 30, BUN is 10, creatinine 0.6, glucose is 62. Troponin 0.010. WBC 6.04, hemoglobin 13.1, hematocrit 42.4, platelets 187,000. Head CT shows stable chronic changes, no acute intracranial pathology. Chest x-ray, no evidence of any acute pathology. ASSESSMENT: A 68-year-old female with a history of diabetes mellitus type 2, chronic obstructive pulmonary disease, hypertension and dementia, who is a shelter resident and was brought to the emergency department due to patient being unresponsive. She was evaluated in the ED. She was found to be hypoglycemic. She was given an amp of D50. She had some improvement. She will require admission for further management. 1. Altered mental status, multifactorial from hypoglycemia and dementia. 2. Diabetes mellitus type 2 with symptomatic hypoglycemia. 3. Chronic obstructive pulmonary disease. 4. Hypertension. PLAN: 1. We will admit patient to medical floor with telemetry. 2. Continue with neuro checks. 3. We will monitor blood glucose and put patient on sliding scale insulin regimen. 4. Continue with DuoNebs p.r.n. 5. We will monitor blood pressure closely. Resume antihypertensive agent. 6. We will put patient on DVT prophylaxis with SCDs. 7. We will continue to follow, and reassess and make further recommendation based on patient's clinical course. cc: MD Rolan Lopez MD MTDD
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
[2019-01-24] MEDS: 1/2 NS 1,000 ML IV SCH ×3 (02:08→19:32)
[2019-01-24] MEDS ORDERED: D50W SYRINGE IV PRN (05:39)
[2019-01-24] MEDS ORDERED: D50W SYRINGE IV ONE (05:40)
[2019-01-24 07:08] LABS: BASO# 0.02 X1000 (0.0-0.2); BASO% 0.3 % (0.0-0.8); EOS# 0.08 X1000 (0.0-0.7); EOS% 1.1 % (0.0-10.0); HEMOGLOBIN 12.2 g/dL (12.0-16.0); IMM GRAN# 0.02 X1000 (0.0-0.04); IMM GRAN% 0.3 % (0.0-0.5); LYMPH# 3.17 X1000 (1.2-3.4); MCH 28.3 PG (27-31); MCHC 30.5 g/dL (33-37); MCV 92.8 FL (81-99); MONO# 1.06 X1000 (0.11-0.59); MONO% 14.7 % (1.7-9.3); MPV 13.1 FL (7.4-10.4); NEUT# 2.86 X1000 (1.4-6.5); NEUT% 39.6 % (42.2-75.2); PLT 165 X1000 (130-400); RBC 4.31 XMIL (4.2-5.4); RDW 15.5 % (11.5-14.5); WBC 7.21 X1000 (4.8-10.8)
[2019-01-24 07:22] LABS: AGAP 8; BUN 9 mg/dL (8-22); CALCIUM 8.4 mg/dL (8.8-10.2); CHLORIDE 106 mmol/L (98-107); COSMO 293; CREATININE 0.6 mg/dL (0.5-0.9); ESTIMATED GFR > 60; GLUCOSE 266 mg/dL (70-104); POTASSIUM 3.6 mmol/L (3.5-5.1); SODIUM 143 mmol/L (136-145); TCO2 29 mmol/L (25-35)
--- NOTE | 2019-01-24 08:28 | EKG Report ---
Test Performed on : 01/23/2019 7:45:33 PM Test Reason : ams Blood Pressure : / mmHG Vent. Rate : 075 BPM Atrial Rate : 075 BPM P-R Int : 114 ms QRS Dur : 076 ms QT Int : 664 ms P-R-T Axes : 059 022 045 degrees QTc Int : 741 ms Normal sinus rhythm. T wave abnormality, consider anterior ischemia Prolonged QT Abnormal ECG When compared with ECG of 04-JAN-2019 12:01, (Unconfirmed) QT has lengthened Unconfirmed Result
[2019-01-24] MEDS ORDERED: MILK OF MAGNESIA PO PRN (08:34)
--- NOTE | 2019-01-24 09:17 | PROGRESS NOTE ---
DATE: 01/24/2019 Ms. GLOVER who is a 68-year-old female came last night, and was hospitalized for acute mental status change. This appears to be multifactorial as she was hypoglycemic at the group home as well as here, and she has dementia. She seems to have some respiratory distress. However, at present her lungs sound clear. She had a chest x-ray done last night, which did not reveal any evidence of acute pathology. A CT scan of the brain revealed stable chronic changes as described before. No active stroke. We will try to get a speech therapy consult as there seems to be difficulty in swallowing. cc: Rolan Shearer MD
[2019-01-24] MEDS: CRESTOR PO SCH (11:00)
[2019-01-24] MEDS: FOLIC ACID PO SCH (11:00)
[2019-01-24] MEDS: PROZAC PO SCH (11:00)
[2019-01-24] MEDS: RISPERDAL PO SCH ×2 (11:00→21:00)
[2019-01-24] MEDS: NAMENDA XR PO SCH (11:00)
[2019-01-24] MEDS: REMERON PO SCH (21:00)
[2019-01-24] MEDS: RAZADYNE ER PO SCH (21:00)
[2019-01-25 06:39] LABS: BASO# 0.02 X1000 (0.0-0.2); BASO% 0.3 % (0.0-0.8); EOS# 0.15 X1000 (0.0-0.7); EOS% 2.5 % (0.0-10.0); HEMATOCRIT 38.5 % (37.0-47.0); HEMOGLOBIN 11.8 g/dL (12.0-16.0); LYMPH# 3.35 X1000 (1.2-3.4); LYMPH% 55.1 % (20.5-51.1); MCHC 30.6 g/dL (33-37); MCV 91.2 FL (81-99); MONO# 1.02 X1000 (0.11-0.59); MONO% 16.8 % (1.7-9.3); MPV 12.1 FL (7.4-10.4); NEUT# 1.54 X1000 (1.4-6.5); NEUT% 25.3 % (42.2-75.2); PLT 144 X1000 (130-400); RBC 4.22 XMIL (4.2-5.4); RDW 14.8 % (11.5-14.5); WBC 6.08 X1000 (4.8-10.8)
[2019-01-25 07:01] LABS: AGAP 7; BUN 5 mg/dL (8-22); CALCIUM 8.5 mg/dL (8.8-10.2); CHLORIDE 107 mmol/L (98-107); COSMO 283; CREATININE 0.5 mg/dL (0.5-0.9); ESTIMATED GFR > 60; GLUCOSE 82 mg/dL (70-104); POTASSIUM 3.6 mmol/L (3.5-5.1); SODIUM 144 mmol/L (136-145); TCO2 30 mmol/L (25-35)
--- NOTE | 2019-01-25 08:47 | PROGRESS NOTE ---
DATE: 01/25/2019 Ms. Delgadillo continues to have difficulty in swallowing. Her blood sugar has been on the lower side. Her lungs are clear. Heart sounds are normal. Abdomen is soft, nontender. She is more alert today. We will put her on pureed diet. We will continue to watch. She had a speech therapy consult. -1 cc: Rolan Shearer MD
[2019-01-25] MEDS: FOLIC ACID PO SCH (09:56)
[2019-01-25] MEDS: RISPERDAL PO SCH ×2 (09:56→21:26)
[2019-01-25] MEDS: CRESTOR PO SCH (09:56)
[2019-01-25] MEDS: NAMENDA XR PO SCH (09:56)
[2019-01-25] MEDS: PROZAC PO SCH (09:57)
[2019-01-25] MEDS ORDERED: CALMOSEPTINE OINTMENT TOP PRN (10:02)
[2019-01-25] MEDS: RAZADYNE ER PO SCH (21:26)
[2019-01-25] MEDS: REMERON PO SCH (21:26)
[2019-01-26] MEDS: NAMENDA XR PO SCH (09:22)
[2019-01-26] MEDS: RISPERDAL PO SCH ×2 (09:22→22:28)
[2019-01-26] MEDS: PROZAC PO SCH (09:22)
[2019-01-26] MEDS: CRESTOR PO SCH (09:23)
[2019-01-26] MEDS: FOLIC ACID PO SCH (09:23)
--- NOTE | 2019-01-26 09:24 | PROGRESS NOTE ---
DATE: 01/26/2019 SUBJECTIVE: Ms. Delgadillo is in about the same general condition. She is somewhat drowsy. Blood sugars are in the 80s and 90s. I am going to discontinue the Lantus insulin and keep her only on sliding scale. She is not on any oral agents. I am afraid that she cannot swallow the big tablet of metformin. She is on pureed diet at present, has some swallowing problem, cannot open the mouth wide for the speech therapist to evaluate her. She has dementia. PLAN: If she is stable, we may decide to discharge her in a day or so. -3 cc: Rolan Shearer MD
[2019-01-26] MEDS: RAZADYNE ER PO SCH (22:28)
[2019-01-26] MEDS: REMERON PO SCH (22:28)
--- NOTE | 2019-01-27 09:22 | PROGRESS NOTE ---
DATE: 01/27/2019 Ms. Delgadillo is in about the same general condition. Vital signs are stable. Oral intake is poor. Blood sugars are stable. Mental status is unchanged. She is alert. She does not communicate much. Part of this is because of dementia. We will discharge her back to the [facility] today. cc: Rolan Shearer MD
[2019-01-27] MEDS: CRESTOR PO SCH (09:40)
[2019-01-27] MEDS: RISPERDAL PO SCH (09:41)
[2019-01-27] MEDS: FOLIC ACID PO SCH (09:41)
[2019-01-27] MEDS: PROZAC PO SCH (09:41)
[2019-01-27] MEDS: NAMENDA XR PO SCH (09:41)
--- NOTE | 2019-01-27 09:45 | DISCHARGE SUMMARY ---
ADMISSION DATE: 01/23/2019 DISCHARGE DATE: 01/27/2019 HISTORY OF PRESENT ILLNESS: Ms. Delgadillo, who is a 68-year-old, female, a resident of [facility], with a known case of COPD and maturity-onset diabetes, dementia, who was admitted with acute mental status changes. [facility] HOSPITAL COURSE: She was given D50 here in the emergency room. Thereafter, she improved. She had difficulty in swallowing. Speech evaluation was partly done but she could not open her mouth that well for a total evaluation. A pureed diet has been working out good for Maggie. She is alert and tried to follow the commands. Mental status is improved. We will [facility]. FINAL DIAGNOSES: 1. Acute mental status change, probably from hypoglycemic encephalopathy. 2. Dementia. 3. Chronic obstructive pulmonary disease. 4. Diabetes. DISCHARGE INSTRUCTIONS: Since he gets recurrent hypoglycemia, partly because of poor oral intake and partly because of medications, we are going to stop the medications completely and watch her blood [facility]. She will be discharged today. While she was here, she had a CT scan of the head which revealed some stable ventriculomegaly with cortical atrophy. There is a possibility of her having normal-pressure hydrocephalus. However, there were no acute findings on the CAT scan. Chest x-ray had revealed no evidence of acute pathology. We will [facility]. cc: Rolan Shearer MD
[2019-01-27 11:28] VITALS: BP 139/61
--- NOTE | 2019-02-03 08:20 | DISCHARGE SUMMARY ---
ADMISSION DATE: 01/23/2019 DISCHARGE DATE: 01/27/2019 ADDENDUM REPORT: Ms. Delgadillo is a 68-year-old -[place] female who was admitted with mental status changes and she had metabolic encephalopathy due to hypoglycemia. cc: Rolan Shearer MD
== END 2019-01-27 16:00 | DRG 637 ==
LOC: ED 19:36 → SUATTDRO 23:54 → 3N 23:54
PROVIDERS: ADMIT Internal Medicine; ATTEND Internal Medicine
CPT/HCPCS: 51701; 70450; 71020; 71046; 80048; 80053; 81001; 82550; 82948; 83735; 84100; 84484; 85025; 86140; 92610; 93005; 96374; 99285; A9270; J7030; P9612; XXXXX

== ENCOUNTER 2019-07-27 18:48 | Inpatient (IN) ==
[2019-07-27] MEDS ORDERED: AMIDATE ONE (18:59)
[2019-07-27] MEDS ORDERED: NORCURON ONE (18:59)
[2019-07-27] MEDS ORDERED: NS 1,000 ML ONE (19:06)
[2019-07-27] MEDS ORDERED: STERILE WATER INJ. ONE (19:06)
[2019-07-27] MEDS ORDERED: NORCURON IV ONE (19:15)
[2019-07-27] MEDS ORDERED: AMIDATE IV ONE (19:15)
[2019-07-27] MEDS ORDERED: DIPRIVAN 1% 1,000 MG/100 ML BOTTLE ONE (19:16)
[2019-07-27] MEDS: DIPRIVAN 1% 1,000 MG/100 ML BOTTLE IV SCH ×3 (19:26→21:32)
--- NOTE | 2019-07-27 19:46 | Diag Imaging Result Doc PS360 ---
EXAM: CHEST-PORTABLE HISTORY: ETT placement TECHNIQUE: Chest single view COMPARISON: 01/23/2019 FINDINGS: There is an endotracheal tube over the neck. It is difficult to tell if this is within the trachea. If it is within the trachea it is over 8 cm from the escobar. Right lower lobe infiltrates and atelectasis. Heart is prominent. IMPRESSION: Endotracheal tube overlying the neck. I am unsure if it is in the trachea. Electronically signed by Buster Ragsdale 07/27/2019 7:44 PM
[2019-07-27 20:04] LABS: ALLEN TEST YES; BE 2.6 mmoll (-3.0-3.0); BLOOD TYPE ARTERIAL; HCO3-(ACT) 26.9 mmoll (20.0-26.0); METHB 1.2 % (0.0-1.5); O2(CT) 20.2 mL/dL (15.0-23.0); O2HB 95.1 % (95.0-99.0); PO2(98.6) 81 mmHg (60-100); SAMPLE BLOOD; SRATE 12 BPM; THB 15.1 g/dL (11.5-17.4); TVOL 500 mL; pH(98.6) 7.33 (7.35-7.45)
[2019-07-27] MEDS ORDERED: LABETALOL IV ONE (20:08)
--- NOTE | 2019-07-27 20:23 | PROVIDER DOCUMENTATION ---
HPI-Neurological Disorder - General Chief Complaint: Shortness of Breath Stated Complaint: aspiration Time Seen by Provider: 07/27/19 18:55 Source: EMS Allergies/Adverse Reactions: Patient Allergies Allergy/AdvReac Type Severity Reaction Status Date / Time levofloxacin [From Levaquin] Allergy Mild Unknown Verified 01/23/19 20:02 metronidazole [From Flagyl] Allergy Mild Unknown Verified 01/23/19 20:02 Metronidazole HCl * Allergy Mild Unknown Verified 01/23/19 20:02 [From Flagyl] Home Medications: Home Medication List Medication Instructions Recorded Confirmed Last Taken Type Folic Acid 1 mg PO DAILY 05/31/13 01/24/19 01/23/19 09:00 History Magnesium Hydroxide [Milk of 30 ml PO EVERY OTHER DAY PRN PRN 05/31/13 01/24/19 09/28/17 21:00 History Magnesia] Risperidone [Risperdal] 0.5 mg PO BID 05/31/13 01/24/19 01/23/19 17:00 History Sennosides/Docusate Sodium 1 each PO HS 05/31/13 01/24/19 01/23/19 21:00 History [Senna-S Tablet] Divalproex [Depakote] 500 mg PO QHS #0 tablet 06/08/13 01/24/19 01/23/19 21:00 Rx Fluoxetine HCl [Prozac] 40 mg PO DAILY 03/31/16 01/24/19 01/23/19 09:00 History Mirtazapine [Remeron] 15 mg PO QHS 03/31/16 01/24/19 01/23/19 21:00 History Potassium Chloride E.r. [Klor-Con] 10 meq PO TID #0 tablet 04/04/16 01/24/19 01/23/19 21:00 Rx Rosuvastatin Calcium 5 mg PO DAILY 01/04/19 01/24/19 01/23/19 09:00 History Acetaminophen [Tylenol] 650 mg PO Q4H PRN PRN tab 01/12/19 01/24/19 Unknown Rx Divalproex [Depakote] 250 mg PO BID@0700,1400 01/24/19 01/24/19 01/23/19 14:00 History Memantine Xr [Namenda Xr] 28 mg PO DAILY cap 01/27/19 Unknown Rx Menthol/Zinc Oxide Ointment 1 gm TOP PRN PRN tube 01/27/19 Unknown Rx [Calmoseptine Ointment] - History of Present Illness-Neuro Nature of Presenting Problem: custodial patient, brought here by EMS. History is very limited. EMS said patient was found in her bed unresponsive with vomitous around her. patient was brought in her on non rebreather and intubated her Onset/Duration: reports: other (see history above) Context: reports: found unresponsive by [facility] staff Character of Altered Mental Status: reports: decreased responsiveness Any recent trauma/injury?: reports: none Associated Symptoms: reports: loss of consciousness, vomiting Review of Systems - Adult - REVIEW OF SYSTEMS - ADULT ROS:: unobtainable per condition Constitutional: reports: see HPI Gastrointestinal: reports: see HPI Past History - Adult - PAST MEDICAL HISTORY-ADULT Review of Records: reports: Nursing Assessment Review, Medications Reviewed Major Childhood Illnesses: reports: denies history Cardiovascular: reports: HTN Respiratory: reports: COPD, pneumonia Gastrointestinal: reports: denies history Obstetrical/Gynecological: reports: denies history Genitourinary: reports: denies history Musculoskeletal: reports: denies history Neurological: reports: dementia Psychiatric: reports: denies history Endocrine/Immune: reports: anemia, Diabetes Other Conditions: reports: denies history - PRIOR SURGERIES/PROCEDURES Surgical/Procedure History: reports: reviewed, not pertinent - IMMUNIZATION STATUS Childhood Immunizations: See Nurse Assessment Flu Vaccine: See Nurse Assessment - FAMILY HISTORY Family History: reviewed, not pertinent Physical Exam- Neurological - Physical Exam-Neuro General Appearance: obtunded HENMT: normocephalic/atraumatic Head Injury: no evidence of injury Respiratory: rhonchi Cardiovascular: no edema, no JVD Abdominal Exam: soft Integumentary: other (hyperpigmented area note on the abdomen) - Glascow Coma Scale Best Eye Response: (1) no response Best Verbal Response: (1) no verbal response Best Motor Response: (5) localizes to pain Total Glascow Score: 7 Progress - PLAN OF CARE/RESULTS Progress/Plan/Lab Results: Vital Signs - 8 hr 07/27/19 18:53 07/27/19 18:59 07/27/19 19:33 Temperature Pulse Rate 116 H 117 H 126 H Respiratory Rate 24 34 H 17 Blood Pressure 142/71 142/71 232/127 O2 Sat by Pulse Oximetry 99 96 99 07/27/19 19:36 07/27/19 19:40 07/27/19 19:47 Temperature Pulse Rate 125 H 126 H 123 H Respiratory Rate 21 16 13 Blood Pressure 232/127 211/109 201/108 O2 Sat by Pulse Oximetry 95 96 97 07/27/19 20:01 07/27/19 20:16 07/27/19 20:22 Temperature Pulse Rate 131 H 146 H 127 H Respiratory Rate 25 H 23 27 H Blood Pressure 213/145 202/150 177/116 O2 Sat by Pulse Oximetry 93 L 93 L 94 L 07/27/19 20:31 07/27/19 20:46 07/27/19 21:45 Temperature 103.7 F H Pulse Rate 120 H 115 H 115 H Respiratory Rate 26 H 12 12 Blood Pressure 147/106 161/85 153/138 O2 Sat by Pulse Oximetry 98 99 100 07/27/19 21:46 Temperature Pulse Rate 114 H Respiratory Rate 12 Blood Pressure 122/75 O2 Sat by Pulse Oximetry 100 Laboratory Results - last 24 hr 07/27/19 07/27/19 07/27/19 19:35 19:51 19:57 WBC 7.92 RBC 5.71 H Hgb 15.5 Hct 51.5 H MCV 90.2 MCH 27.1 MCHC 30.1 L RDW Std Deviation 15.2 H Plt Count 122 L MPV 13.7 H Immature Gran % (Auto) 0.3 Neut % (Auto) 65.1 Lymph % (Auto) 21.7 [place] % (Auto) 12.2 H Eos % (Auto) 0.3 Baso % (Auto) 0.4 Immature Gran # (Auto) 0.02 Neut # (Auto) 5.16 Lymph # (Auto) 1.72 [place] # (Auto) 0.97 H Eos # (Auto) 0.02 Baso # (Auto) 0.03 PT INR PTT (Actin FS) Specimen Type ARTERIAL Sample Site L RADIAL pH 7.33 L pCO2 57 H* pO2 81 HCO3 26.9 H Base Excess 2.6 Oxyhemoglobin 95.1 ABG O2 Sat (Calculated) 20.2 ABG O2 Saturation 98.0 ABG Carboxyhemoglobin 1.80 ABG Methemoglobin 1.2 Jimbo Test YES A-a O2 Difference 418.0 Total Hemoglobin 15.1 Lactate 1.70 Blood Gas Modality VENTILATOR Vent Mode A/C Spontaneous Rate 12 FiO2 % 80.0 Tidal Volume 500 PEEP 5.0 Sodium Potassium Chloride Carbon Dioxide Anion Gap BUN Creatinine Estimated GFR/1.73 m2 BUN/Creatinine Ratio Glucose Calculated Osmolality Calcium Total Bilirubin AST ALT Alkaline Phosphatase Creatine Kinase Troponin T Total Protein Albumin Globulin Albumin/Globulin Ratio Plasma Lactate 2.3 H Urine Source Urine Color Urine Turbidity Urine pH Ur Specific [place] Urine Protein Ur Glucose (Stick) Ur Ketones (Stick) Urine Blood Urine Nitrite Urine Bilirubin Urobilinogen Dipstick Urine Leukocytes Urine WBC (Auto) Urine RBC (Auto) U Epithel Cells (Auto) Urine Bacteria (Auto) 07/27/19 07/27/19 07/27/19 19:57 19:57 19:57 WBC RBC Hgb Hct MCV MCH MCHC RDW Std Deviation Plt Count MPV Immature Gran % (Auto) Neut % (Auto) Lymph % (Auto) [place] % (Auto) Eos % (Auto) Baso % (Auto) Immature Gran # (Auto) Neut # (Auto) Lymph # (Auto) [place] # (Auto) Eos # (Auto) Baso # (Auto) PT 14.1 INR 1.07 PTT (Actin FS) 30.3 Specimen Type Sample Site pH pCO2 pO2 HCO3 Base Excess Oxyhemoglobin ABG O2 Sat (Calculated) ABG O2 Saturation ABG Carboxyhemoglobin ABG Methemoglobin Jimbo Test A-a O2 Difference Total Hemoglobin Lactate Blood Gas Modality Vent Mode Spontaneous Rate FiO2 % Tidal Volume PEEP Sodium 148 H Potassium 4.1 Chloride 104 Carbon Dioxide 28 Anion Gap 16 BUN 20 Creatinine 0.7 Estimated GFR/1.73 m2 > 60 BUN/Creatinine Ratio 29 Glucose 136 H Calculated Osmolality 299 Calcium 8.8 Total Bilirubin 0.33 AST 18 ALT 10 Alkaline Phosphatase 98 Creatine Kinase 118 Troponin T < 0.010 Total Protein 7.8 Albumin 4.0 Globulin 3.8 Albumin/Globulin Ratio 1.1 Plasma Lactate Urine Source Urine Color Urine Turbidity Urine pH Ur Specific [place] Urine Protein Ur Glucose (Stick) Ur Ketones (Stick) Urine Blood Urine Nitrite Urine Bilirubin Urobilinogen Dipstick Urine Leukocytes Urine WBC (Auto) Urine RBC (Auto) U Epithel Cells (Auto) Urine Bacteria (Auto) 07/27/19 20:43 WBC RBC Hgb Hct MCV MCH MCHC RDW Std Deviation Plt Count MPV Immature Gran % (Auto) Neut % (Auto) Lymph % (Auto) [place] % (Auto) Eos % (Auto) Baso % (Auto) Immature Gran # (Auto) Neut # (Auto) Lymph # (Auto) [place] # (Auto) Eos # (Auto) Baso # (Auto) PT INR PTT (Actin FS) Specimen Type Sample Site pH pCO2 pO2 HCO3 Base Excess Oxyhemoglobin ABG O2 Sat (Calculated) ABG O2 Saturation ABG Carboxyhemoglobin ABG Methemoglobin Jimbo Test A-a O2 Difference Total Hemoglobin Lactate Blood Gas Modality Vent Mode Spontaneous Rate FiO2 % Tidal Volume PEEP Sodium Potassium Chloride Carbon Dioxide Anion Gap BUN Creatinine Estimated GFR/1.73 m2 BUN/Creatinine Ratio Glucose Calculated Osmolality Calcium Total Bilirubin AST ALT Alkaline Phosphatase Creatine Kinase Troponin T Total Protein Albumin Globulin Albumin/Globulin Ratio Plasma Lactate Urine Source CATH Urine Color YELLOW Urine Turbidity CLEAR Urine pH 5.5 Ur Specific [place] 1.020 Urine Protein 30 A Ur Glucose (Stick) NEGATIVE Ur Ketones (Stick) 20 A Urine Blood SMALL A Urine Nitrite NEGATIVE Urine Bilirubin NEGATIVE Urobilinogen Dipstick NORMAL Urine Leukocytes NEGATIVE Urine WBC (Auto) <10 Urine RBC (Auto) <10 U Epithel Cells (Auto) <10 Urine Bacteria (Auto) NEGATIVE Orders Category Date Time Status Admit - [facility] Routine AdmDCTranf 07/27/19 22:02 Active Activity - Strict Bedrest ORDERED Care 07/27/19 22:02 Active Apply Mechanical Device [QM] ORDERED Care 07/27/19 22:02 Active Cardiac Monitoring DIRECTED Care 07/27/19 20:19 Active Elevate Head of Bed DIRECTED Care 07/27/19 22:02 Active Encourage Fluids DIRECTED Care 07/27/19 22:02 Active [place] Insertion ORDERED Care 07/27/19 22:02 Completed IV Insertion ORDERED Care 07/27/19 20:19 Completed Intake and Output-Strict Q 8-HR ASSESS Care 07/27/19 22:02 Active Notify MD of + Sepsis Screen NOW Care 07/27/19 20:19 Active Notify Physician As Ordered Care 07/27/19 20:19 Active Nursing- Assist w/ IS as order ORDERED Care 07/27/19 22:02 Active Nursing- MD Consult Request ROUTINE Care 07/27/19 22:02 Active Nursing- MD Consult Request ROUTINE Care 07/27/19 22:02 Active Turn, Cough and Deep Breathe Q2HR Care 07/27/19 22:02 Active Vital Signs Order Q1H Care 07/27/19 22:02 Active Z-Document. for Tele Applied ORDERED Care 07/27/19 22:02 Active MD [Physician/Provider Consults] Routine Cons 07/28/19 07:00 Ordered Physician/Provider Consults Routine Cons 07/28/19 07:00 Ordered CHEST-1 VIEW [RAD] Stat Exams 07/27/19 20:19 Completed CHEST-PORTABLE [RAD] DAILY Exams 07/28/19 06:00 Ordered CHEST-PORTABLE [RAD] DAILY Exams 07/29/19 06:00 Ordered CHEST-PORTABLE [RAD] DAILY Exams 07/30/19 06:00 Ordered CHEST-PORTABLE [RAD] DAILY Exams 07/31/19 06:00 Ordered CHEST-PORTABLE [RAD] DAILY Exams 08/01/19 06:00 Ordered CHEST-PORTABLE [RAD] DAILY Exams 08/02/19 06:00 Ordered CHEST-PORTABLE [RAD] DAILY Exams 08/03/19 06:00 Ordered CHEST-PORTABLE [RAD] Stat Exams 07/27/19 19:[address] HEAD/C-SPINE W/O CONTRAST [CT] Stat Exams 07/27/19 20:22 Completed ABG [RESP] DAILY Lab 07/28/19 06:00 Ordered ABG [RESP] DAILY Lab 07/29/19 06:00 Ordered ABG [RESP] DAILY Lab 07/30/19 06:00 Ordered ABG [RESP] DAILY Lab 07/31/19 06:00 Ordered ABG [RESP] DAILY Lab 08/01/19 06:00 Ordered ABG [RESP] DAILY Lab 08/02/19 06:00 Ordered ABG [RESP] DAILY Lab 08/03/19 06:00 Ordered ABG [RESP] Routine Lab 07/27/19 19:35 Completed BLOOD CULTURE [BLDCUL] Stat Lab 07/27/19 19:54 Results CBC WITH DIFF [HEME] Routine Lab 07/28/19 06:00 Ordered CBC WITH DIFF [HEME] Stat Lab 07/27/19 19:57 Completed CK PROFILE [SP CHEM] Stat Lab 07/27/19 19:57 Completed COMPREHENSIVE METABOLIC PANEL [CHEM] Routine Lab 07/28/19 06:00 Ordered COMPREHENSIVE METABOLIC PANEL [CHEM] Stat Lab 07/27/19 19:57 Completed LACTATE, PLASMA [CHEM] Lab 07/27/19 19:51 Completed LACTATE, PLASMA [CHEM] Lab 07/27/19 23:30 Uncollected LACTATE, PLASMA [CHEM] Lab 07/28/19 02:30 Uncollected PROTIME WITH INR [COAG] Stat Lab 07/27/19 19:57 Completed PTT [COAG] Stat Lab 07/27/19 19:57 Completed SPUTUM CULTURE WITH GRAM STAIN [RM] Routine Lab 07/27/19 22:02 Uncollected TROPONIN T Stat Lab 07/27/19 19:57 Completed URINALYSIS W/POSS RFLX CULT [URINALYSIS] Stat Lab 07/27/19 20:43 Completed 0.9% Sodium Chloride Inj [Ns] 1,000 ml Med 07/27/19 19:06 Discontinued .ROUTE As directed 0.9% Sodium Chloride Inj [Ns] 1,000 ml Med 07/27/19 22:02 Active IV 125 mls/hr 0.9% Sodium Chloride Inj [Ns] 1,000 ml Med 07/27/19 21:34 Discontinued IV 999 mls/hr Acetaminophen [Ofirmev 1000 mg/Isotonic Soln] Med 07/27/19 21:53 Discontinued 1,000 mg in 100 ml .ROUTE As directed Acetaminophen [Ofirmev 1000 mg/Isotonic Soln] Med 07/27/19 21:46 Active 1,000 mg in 100 ml IV Q6H PRN Albuterol 2.5MG/Ipratrop 0.5MG [Duoneb (A & A)] Med 07/27/19 22:02 Active 3 ml INH Q2H PRN PRN Albuterol 2.5MG/Ipratrop 0.5MG [Duoneb (A & A)] Med 07/27/19 23:30 Active 3 ml INH RTQ4H CefEPIME [Maxipime] 1 gm Med 07/27/19 22:02 Ordered 0.9% Sodium Chloride Inj [Ns] 50 ml IV Q12H Etomidate [Amidate] Med 07/27/19 19:15 Discontinued 20 mg IV NOW ONE Etomidate [Amidate] Med 07/27/19 18:59 Discontinued 40 mg .ROUTE .STK-MED ONE Insulin Lispro [Humalog] Med 07/27/19 21:00 Active See Protocol SUBQ 0700,1100,1600,2100 Labetalol Med 07/27/19 20:08 Discontinued 10 mg IV NOW ONE Lorazepam [Ativan] Med 07/27/19 22:02 Active 1 - 2 mg IV Q1H PRN PRN Morphine Med 07/27/19 22:02 Active 2 mg IV Q4H PRN PRN Pharmacy Order [Vancomycin IV Per Pharmacy] Med 07/27/19 22:02 Ordered 1 each MISC DIRECTED Propofol [Diprivan 1%] Med 07/27/19 21:28 Discontinued 10 mg IV NOW ONE Propofol [Diprivan 1%] Med 07/27/19 19:16 Discontinued 1,000 mg in 100 ml .ROUTE As directed Propofol [Diprivan 1%] Med 07/27/19 21:30 Discontinued 1,000 mg in 100 ml IV As Directed mls/hr Propofol [Diprivan 1%] Med 07/27/19 22:02 Ordered 1,000 mg in 100 ml IV As Directed mls/hr Vecuronium [Norcuron] Med 07/27/19 18:59 Discontinued 10 mg .ROUTE .STK-MED ONE Vecuronium [Norcuron] Med 07/27/19 19:15 Discontinued 8 mg IV NOW ONE Water, Sterile Inj [Sterile Water Inj] Med 07/27/19 19:06 Discontinued 10 ml .ROUTE .STK-MED ONE Aerosol Treatments Routine [facility] 07/27/19 22:02 Active Aeros[address] Treatments Stat [facility] 07/27/19 22:02 Active Incentive Spirometer Routine [facility] 07/27/19 22:02 Active Oxygen Device Stat [facility] 07/27/19 20:19 Active Pulse Oximetry Routine Ot 07/27/19 22:02 Active Telemetry [OM.EQ] Routine [facility] 07/27/19 22:02 Active Transfer/Admit Order [TRANSFER] Routine Transfer 07/27/19 21:09 Completed Result Diagrams: 07/27/19 19:57 07/27/19 19:57 - REASSESSMENT Reassessment #1 Time Reassessed: 20:05 Status: worsening (patient is intubated and ventilated, elevated bp amd pulse note, will order labetalol) Reassessment #2 Time Reassessed: 21:10 Status: unchanged (intubated and ventillated, tolerating vent.) - XRAY 1 XRAY Study: Chest ( EXAM: CHEST-PORTABLE HISTORY: ETT placement TECHNIQUE: Chest single view COMPARISON: 01/23/2019 FINDINGS: There is an endotracheal tube over the neck. It is difficult to tell if this is within the trachea. If it is within the trachea it is over 8 cm from the escobar. Right lower lobe infil trates and atelectasis. Heart is prominent. IMPRESSION: Endotracheal tube overlying the neck. I am unsure if it is in the trachea.) - CONSULTS/PCP/HOSPITALIST Notification #1 *Consult/PCP/Hospitalist*: spoke with ms martinez Consult Disposition: Admit (patient is admitted under Dr Ibanez) Procedures - INTUBATION Time of Intubation: 19:15 Airway Evaluation: Large tongue, Copious Secretions Mallampati Class: 2 Intubation Method: orotracheal Equipment: ETT Tube Size (cm): 7.5 Pretreated with 100% Oxygen?: Yes Breath Sounds after Intubation: equal ETT Primary Tube Confirmation: Direct Visualization, Chest Rise and Fall, Tube placement verified on XRAY, Tube Repositioned, Placement re-confirmed with CXR after reposition Intubation Complications: no complications Vent Settings: See Respiratory Therapy Notes Departure - Departure Date of Disposition Decision: 07/27/19 Time of Disposition Decision: 21:28 DIAGNOSIS: Sepsis Qualifiers: Sepsis type: sepsis due to unspecified organism Sepsis acute organ dysfunction status: unspecified Qualified Code(s): A41.9 - Sepsis, unspecified organism Altered mental state Qualifiers: Altered mental status type: coma Coma depth: [place] coma 3-8 Coma timing: at arrival to emergency department Qualified Code(s): R40.2432 - [place] coma scale score 3-8, at arrival to emergency department Disposition: ADMITTED INPATIENT 09 Certified Medical Emergency: Emergent Condition: Critical - Critical Care Note This patient required my direct & personal management of CC.: Yes Total Time (mins): 35 Critical Care Statement: This patient required my direct personal management to treat or rule out processes, the absence of which, could potentiallly result in sudden, clinically significant life or limb threatening deterioration. Attestation - Physician/ BIANCA Attestation Patient care was provided by Advanced Practice Provider:: No The physician spent face to face time with patient:: Yes Advanced Practice Provider documentation review:: Supervising physician onsite and consulted in the evaluation and care of this patient. The physician did have a face to face encounter with the patient.
[2019-07-27 20:45] LABS: URINE SOURCE CATH
[2019-07-27 20:47] LABS: BASO# 0.03 X1000 (0.0-0.2); BASO% 0.4 % (0.0-0.8); EOS# 0.02 X1000 (0.0-0.7); EOS% 0.3 % (0.0-10.0); HEMATOCRIT 51.5 % (37.0-47.0); HEMOGLOBIN 15.5 g/dL (12.0-16.0); IMM GRAN# 0.02 X1000 (0.0-0.04); IMM GRAN% 0.3 % (0.0-0.5); LYMPH# 1.72 X1000 (1.2-3.4); LYMPH% 21.7 % (20.5-51.1); MCH 27.1 PG (27-31); MCHC 30.1 g/dL (33-37); MCV 90.2 FL (81-99); MONO# 0.97 X1000 (0.11-0.59); MONO% 12.2 % (1.7-9.3); MPV 13.7 FL (7.4-10.4); NEUT# 5.16 X1000 (1.4-6.5); NEUT% 65.1 % (42.2-75.2); PLT 122 X1000 (130-400); RBC 5.71 XMIL (4.2-5.4); RDW 15.2 % (11.5-14.5); WBC 7.92 X1000 (4.8-10.8)
--- NOTE | 2019-07-27 20:49 | Diag Imaging Result Doc PS360 ---
EXAM: CHEST-1 VIEW HISTORY: unresonpsive, intubated TECHNIQUE: Single view COMPARISON: 7:29 PM FINDINGS: Endotracheal tube is in good position on the current exam with the tip located 3 cm above the escobar. Improved aeration in the right lung base. Electronically signed by Buster Ragsdale 07/27/2019 8:47 PM
[2019-07-27 20:50] LABS: BILIRUBIN URINE NEGATIVE (NEGATIVE); BLOOD URINE SMALL (NEGATIVE); COLOR YELLOW; GLUCOSE URINE NEGATIVE (NEGATIVE); KETONE URINE 20 mg/dL (NEGATIVE); LEUKOCYTES URINE NEGATIVE (NEGATIVE); NITRITE URINE NEGATIVE (NEGATIVE); PH URINE 5.5; PROTEIN URINE 30 mg/dL (NEGATIVE); TURBIDITY URINE CLEAR (CLEAR); UROBILINOGEN URINE NORMAL (NORMAL)
[2019-07-27 20:51] LABS: INR 1.07; PROTIME 14.1 Seconds (11.0-16.0); PTT 30.3 Seconds (22.3-41.8)
[2019-07-27 20:51] LABS: UR EPITHELIAL CELLS <10 /HPF (<10); URINE BACTERIA NEGATIVE /HPF; URINE RBC <10 /HPF (<10); URINE WBC <10 /HPF (<10)
[2019-07-27 20:59] LABS: AGAP 16; ALB/GLOB RATIO 1.1; ALKALINE PHOSPHATASE 98 U/L (32-104); BUN 20 mg/dL (8-22); CALCIUM 8.8 mg/dL (8.8-10.2); CHLORIDE 104 mmol/L (98-107); CK PROFILE 118 U/L (24-173); COSMO 299; CREATININE 0.7 mg/dL (0.5-0.9); ESTIMATED GFR > 60; GLUCOSE 136 mg/dL (70-104); GOT 18 U/L (10-30); GPT 10 U/L (10-36); POTASSIUM 4.1 mmol/L (3.5-5.1); SODIUM 148 mmol/L (136-145); TCO2 28 mmol/L (25-35); TOTAL BILIRUBIN 0.33 mg/dL (0.20-1.00); TOTAL PROTEIN 7.8 g/dL (6.3-8.3)
[2019-07-27] MEDS ORDERED: DIPRIVAN 1% IV ONE (21:28)
--- NOTE | 2019-07-27 21:29 | Diag Imaging Result Doc PS360 ---
EXAM : CT HEAD/C-SPINE W/O CONTRAST HISTORY: unresponsive, untubated TECHNIQUE: 1. CT head without contrast 2. CT cervical spine without contrast COMPARISON: Head compared to 01/23/2019 FINDINGS: Head: No parenchymal hemorrhage. No epidural or subdural hematoma. No subarachnoid hemorrhage. No mass identified on this noncontrasted exam. Ventriculomegaly similar to the prior exam with chronic microvascular ischemic changes. No sinus opacification. Cervical spine: There is mild scoliosis. No precervical soft tissue swelling. No subluxation. Moderate degenerative bone spurring. No fracture. IMPRESSION: Head: No hemorrhage. No change. Cervical spine: No acute fracture. This exam was performed using automated exposure control, adjustment of mA or kV according to patient size, and/or use of iterative reconstruction technique. Electronically signed by Buster Ragsdale 07/27/2019 9:27 PM
[2019-07-27] MEDS ORDERED: NS 1,000 ML IV ONE (21:34)
[2019-07-27 21:39] LABS: MODALITY VENTILATOR; PCO2(98.6) 57 mmHg (35-45)
[2019-07-27] MEDS ORDERED: OFIRMEV 1000 MG/ISOTONIC SOLN 1,000 MG/100 ML BOTTLE ONE (21:53)
[2019-07-27] MEDS: OFIRMEV 1000 MG/ISOTONIC SOLN 1,000 MG/100 ML BOTTLE IV PRN (21:54)
[2019-07-27] MEDS ORDERED: VANCOMYCIN IV PER PHARMACY MISC SCH (22:02)
[2019-07-27] MEDS ORDERED: ATIVAN IV PRN (22:02)
[2019-07-27] MEDS: NS 1,000 ML IV SCH (22:50)
[2019-07-27] MEDS: MAXIPIME 1 GM in NS 50 ML IV SCH (22:54)
[2019-07-27] MEDS ORDERED: SODIUM BICARBONATE 8.4% 75 MEQ in D5W 1,000 ML IV SCH (23:30)
[2019-07-27] MEDS ORDERED: LEVOPHED 8 MG in D5 1/2 NS 250 ML IV SCH (23:45)
[2019-07-27] MEDS: HUMALOG SUBQ SCH (23:50)
[2019-07-27] MEDS: PEPCID IV SCH (23:52)
[2019-07-28] MEDS ORDERED: VANCOMYCIN 1,750 MG in NS 250 ML IV ONE (01:00)
[2019-07-28] MEDS: DIPRIVAN 1% 1,000 MG/100 ML BOTTLE IV SCH ×5 (01:12→22:25)
[2019-07-28] MEDS: DUONEB (A & A) INH SCH ×7 (03:26→23:16)
[2019-07-28 04:49] LABS: ALLEN TEST YES; BE 0.7 mmoll (-3.0-3.0); BLOOD TYPE ARTERIAL; HCO3-(ACT) 25.5 mmoll (20.0-26.0); METHB 1.3 % (0.0-1.5); O2(CT) 17.2 mL/dL (15.0-23.0); O2HB 97.4 % (95.0-99.0); PCO2(98.6) 47 mmHg (35-45); PO2(98.6) 217 mmHg (60-100); SAMPLE BLOOD; SRATE 12 BPM; THB 12.2 g/dL (11.5-17.4); TVOL 500 mL; pH(98.6) 7.36 (7.35-7.45)
[2019-07-28 05:38] LABS: BASO# 0.03 X1000 (0.0-0.2); BASO% 0.2 % (0.0-0.8); EOS# 0.04 X1000 (0.0-0.7); EOS% 0.3 % (0.0-10.0); HEMATOCRIT 40.1 % (37.0-47.0); HEMOGLOBIN 12.1 g/dL (12.0-16.0); IMM GRAN# 0.03 X1000 (0.0-0.04); IMM GRAN% 0.2 % (0.0-0.5); LYMPH# 5.27 X1000 (1.2-3.4); MCH 27.4 PG (27-31); MCHC 30.2 g/dL (33-37); MCV 90.7 FL (81-99); MONO# 2.75 X1000 (0.11-0.59); MONO% 17.2 % (1.7-9.3); MPV 13.2 FL (7.4-10.4); NEUT# 7.86 X1000 (1.4-6.5); NEUT% 49.1 % (42.2-75.2); PLT 98 X1000 (130-400); RBC 4.42 XMIL (4.2-5.4); WBC 15.98 X1000 (4.8-10.8)
[2019-07-28 06:09] LABS: MODALITY VENTILATOR
[2019-07-28] MEDS: NS 1,000 ML IV SCH ×3 (06:29→22:24)
[2019-07-28] MEDS: HUMALOG SUBQ SCH ×4 (06:30→20:48)
--- NOTE | 2019-07-28 06:34 | HISTORY AND PHYSICAL ---
PRIMARY CARE PROVIDER: Dr. Shearer. CHIEF COMPLAINT: Per ED records, the [facility] with vomitus around her. HISTORY OF PRESENT ILLNESS: Ms. Delgadillo is a 69-year-old -[place] female with a past medical history of dementia, COPD, diabetes, hypertension, dysphagia, anemia, turner to the face. Per EMS records, was [facility] in from the [facility] secondary to her being found unresponsive in her bed with vomitus around her. She was placed on a non-rebreather and intubated. Showed extensive right lower lobe infiltrates as well as atelectasis. We will initiate her on the sepsis protocol. She is currently on a propofol drip. Head and cervical spine CT does not show anything acute. She had a positive D-dimer of 2.3. She will be initiated on the sepsis protocol. Continue with aggressive IV hydration and broad-spectrum antibiotics. PAST MEDICAL HISTORY: 1. Diabetes. 2. COPD. 3. Hypertension. 4. Dysphagia. 5. Dementia. 6. Anemia. 7. Turner on the face. PAST SURGICAL HISTORY: Hysterectomy. ALLERGIES: Levaquin and Flagyl. HOME MEDICATIONS: Have not been compiled. SOCIAL HISTORY: [facility] a [facility] a [facility]. No history of smoking or alcohol or illicit drug use. FAMILY HISTORY: Unknown. REVIEW OF SYSTEMS: Unable to obtain secondary to the patient being intubated and on propofol. PHYSICAL EXAMINATION: VITAL SIGNS: We do not have a temperature right now, heart rate 116, respirations 24, blood pressure 142/71, O2 is 99% on mechanical ventilation. GENERAL: Ms. Delgadillo is a 69-year-old female, who is currently lying on the stretcher in the ICU, intubated and sedated. HEENT: Atraumatic, normocephalic. PERRL. She does appear to have some right eye swelling and facial turner. Trachea appears to be midline. CARDIOVASCULAR: S1, S2 appreciated, tachycardic. No murmurs, gallops, or rubs noted. RESPIRATORY: Lung sounds: Scattered rhonchi throughout all lung bases. GASTROINTESTINAL: Appeared to be soft, nontender, nondistended. Hypoactive bowel sounds. LOWER EXTREMITIES: Generalized edema. Bilateral pedal pulses are palpable. NEUROLOGIC: The patient has been intubated and sedated on propofol, unable to obtain. She did not follow any commands. ASSESSMENT AND PLAN: 1. Acute hypoxemic respiratory failure secondary to probable aspiration pneumonia and a right lower lobe pneumonia. We will continue with the patient on the ventilator. Check daily ABGs, chest x-rays. Consult Pulmonology. Continue with breathing treatments scheduled and p.r.n. and aggressive pulmonary toilet. 2. Sepsis secondary to pneumonia. We will give her 1 L of fluid. Continue with IV fluids, broad- spectrum antibiotics. The [facility], cover for healthcare-associated as well as aspiration pneumonia. 3. Diabetes mellitus. We will continue sliding scale with patterned blood sugars. 4. Chronic obstructive pulmonary disease. Continue breathing treatment. 5. Hypertension. 6. Dysphagia. 7. Dementia. 8. Anemia. 9. Turner to the face. Further recommendation to follow physician evaluation and laboratory and diagnostic data. CRITICAL CARE TIME: Greater than 35 minutes. Dictated by JORDAN Chávez for Cheng Ibanez MD I have performed a face to face diagnostic evaluation. Labs/ Xrays- reviewed. Exam- Chest- rhonchi, CV- regular. A/P- Acute Respiratory Failure, Hypoxemia, Sepsis- Admit, oxygen, check blood cultures, IV ABX. Dr. Ibanez cc: MD Rolan Lopez MD MTDD
--- NOTE | 2019-07-28 06:49 | Diag Imaging Result Doc PS360 ---
CHEST-PORTABLE - 07/28/2019 INDICATION: Pneumonia COMPARISON: 07/27/2019 FINDINGS: Stable endotracheal tube in good position in the midthoracic trachea. There are shifting opacities in the right lung consistent with severe atelectasis. On yesterday's exam, there is significant atelectasis in the right upper lobe, and now on today's exam there is significant right lower lobe atelectasis. There is also worsening atelectasis or infiltrate at the left lower lobe. IMPRESSION: 1. Severe shifting atelectasis in the right lung. 2. Worsening atelectasis or infiltrate at the left lower lobe. Electronically signed by Ryan Tamayo 07/28/2019 6:47 AM
[2019-07-28 07:36] LABS: AGAP 14; ALB/GLOB RATIO 0.8; ALBUMIN 2.5 g/dL (3.5-5.0); ALKALINE PHOSPHATASE 63 U/L (32-104); BUN 14 mg/dL (8-22); CALCIUM 7.7 mg/dL (8.8-10.2); CHLORIDE 107 mmol/L (98-107); COSMO 296; CREATININE 0.7 mg/dL (0.5-0.9); ESTIMATED GFR > 60; GLUCOSE 194 mg/dL (70-104); GOT 14 U/L (10-30); GPT 6 U/L (10-36); POTASSIUM 3.2 mmol/L (3.5-5.1); SODIUM 146 mmol/L (136-145); TCO2 25 mmol/L (25-35); TOTAL BILIRUBIN 0.19 mg/dL (0.20-1.00); TOTAL PROTEIN 5.6 g/dL (6.3-8.3)
[2019-07-28 07:38] LABS: MAGNESIUM 1.4 mg/dL (1.5-2.7); PHOSPHORUS 1.7 mg/dL (2.7-4.5)
--- NOTE | 2019-07-28 09:34 | EKG Report ---
Test Performed on : 07/27/2019 7:06:20 PM Test Reason : ED. No order in [place] Blood Pressure : / mmHG Vent. Rate : 117 BPM Atrial Rate : 117 BPM P-R Int : 080 ms QRS Dur : 074 ms QT Int : 314 ms P-R-T Axes : 055 029 219 degrees QTc Int : 438 ms Sinus tachycardia. with short NC ST & T wave abnormality, consider inferior ischemia ST & T wave abnormality, consider anterolateral ischemia Abnormal ECG No previous ECGs available Unconfirmed Result
--- NOTE | 2019-07-28 10:10 | PROGRESS NOTE ---
DATE: 07/28/2019 SUBJECTIVE: Ms. Delgadillo was admitted to ICU last night because of possible aspiration. She has collapse of both lower lobes, was in acute hypoxemic respiratory failure. She was septic. She has been on IV cefepime, as well as vancomycin, as well as on the vent. Overall condition is unchanged. She has a Pulmonary consult with Dr. Pryor. We are going to hold on her oral medications. We will continue with the current medication. cc: Rolan Shearer MD
[2019-07-28] MEDS: MAXIPIME 1 GM in NS 50 ML IV SCH ×2 (10:55→22:24)
[2019-07-28] MEDS: OFIRMEV 1000 MG/ISOTONIC SOLN 1,000 MG/100 ML BOTTLE IV PRN ×2 (11:48→20:47)
[2019-07-28] MEDS: PEPCID IV SCH ×2 (11:49→22:30)
[2019-07-28] MEDS: SODIUM CHLORIDE 0.9% INJ SCH (11:49)
[2019-07-28] MEDS: MORPHINE IV PRN (18:05)
[2019-07-28] MEDS: KEPPRA 500 MG in NS 100 ML IV SCH (21:00)
--- NOTE | 2019-07-28 21:13 | PULMONOLOGY CONSULTATION ---
DATE: 07/28/2019 REQUESTING PHYSICIAN: Dr. Shearer. REASON FOR CONSULTATION: Respiratory failure. HISTORY OF PRESENT ILLNESS: Ms. Delgadillo is a 69-year-old, white female with dementia, who was found unresponsive, covered in emesis. The patient was brought to the emergency room. She required intubation upon arrival. Chest x-ray revealed atelectasis/pneumonia at the right base. Nursing staff reports continued suctioning of gastric contents from the airway. PAST MEDICAL HISTORY: 1. Dementia. 2. Diabetes. 3. COPD. 4. Dysphagia. 5. Hypertension. 6. Anemia. 7. History of facial turner. SOCIAL HISTORY: She lives in a local long term. Alcohol or tobacco use not listed. REVIEW OF SYSTEMS: Cannot be obtained. PHYSICAL EXAMINATION: A frail, chronically ill-appearing, white female, who is sedated, on mechanical ventilation. BP 140/78, heart rate 103. Maximum temperature in the last 24 hours, 103.7 degrees.HEENT: Pupils are equal and reactive. Oropharynx appears clear. Neck: Supple. Chest: Coarse rhonchi bilaterally with decreased breath sounds of left base. Cardiac: S1-S2. Abdomen: Soft. Extremities: Without edema. LABORATORY: White blood count 15.98, hemoglobin 12.1, platelet count 98,000. Arterial blood gas reveals a pH of 7.36, pCO2 of 47, PO2 of 217, with a lactate of 5.9. Chemistries reveal sodium 146, potassium 3.2, chloride 107, bicarbonate 25, BUN 14, creatinine 0.7, phosphorus 1.7, magnesium 1.4. IMPRESSION: A 69-year-old with dementia, who presents with: 1. Emesis. 2. Aspiration pneumonia. 3. Acute hypoxemic respiratory failure. 4. Fevers. 5. Leukocytosis. PLAN: 1. Continue full ventilatory support. 2. Continue broad-spectrum antibiotics pending results of sputum and blood cultures. 3. Consider tube feeds in the next 24 to 48 hours. 4. Overall prognosis appears poor. TIME SPENT WITH CRITICAL CARE MANAGEMENT: One hour. cc: MD Rolan Toro MD
[2019-07-29] MEDS: VANCOMYCIN 1,300 MG in NS 250 ML IV SCH (01:21)
[2019-07-29] MEDS: DUONEB (A & A) INH SCH ×6 (02:50→23:25)
[2019-07-29] MEDS: DIPRIVAN 1% 1,000 MG/100 ML BOTTLE IV SCH ×4 (03:43→20:09)
[2019-07-29 05:00] LABS: ALLEN TEST YES; BE -2.1 mmoll (-3.0-3.0); BLOOD TYPE ARTERIAL; HCO3-(ACT) 23.3 mmoll (20.0-26.0); METHB 1.3 % (0.0-1.5); O2(CT) 18.3 mL/dL (15.0-23.0); O2HB 96.8 % (95.0-99.0); PCO2(98.6) 31 mmHg (35-45); PO2(98.6) 122 mmHg (60-100); SAMPLE BLOOD; SAO2 99.3 % (95.0-100.0); SRATE 12 BPM; THB 13.3 g/dL (11.5-17.4); TVOL 700 mL; pH(98.6) 7.44 (7.35-7.45)
[2019-07-29 05:05] LABS: MODALITY VENTILATOR
[2019-07-29] MEDS: HUMALOG SUBQ SCH ×4 (06:34→21:50)
[2019-07-29] MEDS: NS 1,000 ML IV SCH ×3 (06:34→22:07)
[2019-07-29 06:48] LABS: MAGNESIUM 1.1 mg/dL (1.5-2.7); PHOSPHORUS 2.3 mg/dL (2.7-4.5)
[2019-07-29 06:55] LABS: HEMATOCRIT 38.1 % (37.0-47.0); HEMOGLOBIN 11.8 g/dL (12.0-16.0); MCH 27.8 PG (27-31); MCV 89.6 FL (81-99); MPV 13.7 FL (7.4-10.4); RBC 4.25 XMIL (4.2-5.4); RDW 14.6 % (11.5-14.5); WBC 15.27 X1000 (4.8-10.8)
--- NOTE | 2019-07-29 06:55 | Diag Imaging Result Doc PS360 ---
EXAM: CHEST-PORTABLE HISTORY: Pneumonia TECHNIQUE: Chest single view COMPARISON: 07/28/2019 FINDINGS: Endotracheal tube in good position. Heart is mildly prominent. There is basilar atelectasis versus infiltrates. These are less pronounced. Small right pleural effusion. Mild pulmonary edema. IMPRESSION: Mild interval improvement. Electronically signed by Buster Ragsdale 07/29/2019 6:54 AM
[2019-07-29 07:05] LABS: AGAP 16; ALB/GLOB RATIO 0.8; ALBUMIN 2.5 g/dL (3.5-5.0); ALKALINE PHOSPHATASE 67 U/L (32-104); BUN 8 mg/dL (8-22); CALCIUM 7.6 mg/dL (8.8-10.2); CHLORIDE 108 mmol/L (98-107); COSMO 287; CREATININE 0.5 mg/dL (0.5-0.9); ESTIMATED GFR > 60; GLUCOSE 136 mg/dL (70-104); GOT 20 U/L (10-30); GPT 7 U/L (10-36); POTASSIUM 2.9 mmol/L (3.5-5.1); SODIUM 144 mmol/L (136-145); TCO2 20 mmol/L (25-35); TOTAL BILIRUBIN 0.28 mg/dL (0.20-1.00); TOTAL PROTEIN 5.7 g/dL (6.3-8.3)
[2019-07-29] MEDS: MORPHINE IV PRN ×2 (08:35→13:33)
[2019-07-29] MEDS: PEPCID IV SCH ×2 (08:50→20:09)
[2019-07-29] MEDS: SODIUM CHLORIDE 0.9% INJ SCH (08:50)
[2019-07-29] MEDS: MAXIPIME 1 GM in NS 50 ML IV SCH ×2 (09:43→22:07)
[2019-07-29] MEDS: KEPPRA 500 MG in NS 100 ML IV SCH ×2 (09:43→20:09)
[2019-07-29] MEDS: POTASSIUM CHLORIDE 20 MEQ/SWI 20 MEQ/100 ML IVPB IV SCH ×2 (10:29→12:42)
[2019-07-29] MEDS ORDERED: MAGNESIUM SULFATE 4 GM/S.W.I. 4 GM/100 ML IVPB IV ONE (10:30)
--- NOTE | 2019-07-29 12:43 | PROGRESS NOTE ---
DATE: 07/29/2019 SUBJECTIVE: Ms Delgadillo is continuing to be dependent on the ventilator. There are no changes that we have made. OBJECTIVE: Her potassium has gone down to 2.9. She has aspiration pneumonia. X-ray shows some improvement in the atelectasis. Besides being on the ventilator, she is on IV vancomycin as well as cefepime and we are going to continue to watch her in ICU. Overall prognosis appears to be poor. cc: Rolan Shearer MD
[2019-07-29 14:17] LABS: ALLEN TEST YES; BE -7.4 mmoll (-3.0-3.0); BLOOD TYPE ARTERIAL; HCO3-(ACT) 19.1 mmoll (20.0-26.0); METHB 1.1 % (0.0-1.5); O2(CT) 18.3 mL/dL (15.0-23.0); O2HB 95.7 % (95.0-99.0); PCO2(98.6) 50 mmHg (35-45); PO2(98.6) 97 mmHg (60-100); SAMPLE BLOOD; SAO2 98.3 % (95.0-100.0); THB 13.5 g/dL (11.5-17.4); pH(98.6) 7.22 (7.35-7.45)
[2019-07-29 14:18] LABS: MODALITY VENTILATOR
[2019-07-30] MEDS: DIPRIVAN 1% 1,000 MG/100 ML BOTTLE IV SCH ×2 (00:30→04:10)
[2019-07-30] MEDS: VANCOMYCIN 1,300 MG in NS 250 ML IV SCH (00:31)
[2019-07-30] MEDS: DUONEB (A & A) INH SCH ×6 (03:37→23:15)
[2019-07-30 04:48] LABS: ALLEN TEST YES; BE -3.6 mmoll (-3.0-3.0); BLOOD TYPE ARTERIAL; HCO3-(ACT) 22.1 mmoll (20.0-26.0); METHB 1.4 % (0.0-1.5); O2(CT) 15.7 mL/dL (15.0-23.0); O2HB 97.3 % (95.0-99.0); PCO2(98.6) 18 mmHg (35-45); PO2(98.6) 170 mmHg (60-100); SAMPLE BLOOD; SAO2 99.6 % (95.0-100.0); SRATE 12 BPM; THB 11.2 g/dL (11.5-17.4); TVOL 700 mL
[2019-07-30 04:53] LABS: MODALITY VENTILATOR; pH(98.6) 7.57 (7.35-7.45)
[2019-07-30] MEDS: NS 1,000 ML IV SCH (05:48)
[2019-07-30] MEDS: HUMALOG SUBQ SCH ×4 (06:06→20:34)
[2019-07-30 06:43] LABS: HEMATOCRIT 34.8 % (37.0-47.0); MCH 27.8 PG (27-31); MCHC 31.6 g/dL (33-37); MCV 87.9 FL (81-99); PLT 95 X1000 (130-400); RBC 3.96 XMIL (4.2-5.4); RDW 14.3 % (11.5-14.5); WBC 12.36 X1000 (4.8-10.8)
[2019-07-30 07:13] LABS: AGAP 15; ALB/GLOB RATIO 0.7; ALBUMIN 2.2 g/dL (3.5-5.0); ALKALINE PHOSPHATASE 75 U/L (32-104); BUN 5 mg/dL (8-22); CALCIUM 6.8 mg/dL (8.8-10.2); CHLORIDE 111 mmol/L (98-107); COSMO 278; CREATININE 0.5 mg/dL (0.5-0.9); ESTIMATED GFR > 60; GLUCOSE 84 mg/dL (70-104); GOT 17 U/L (10-30); GPT 6 U/L (10-36); POTASSIUM 3.2 mmol/L (3.5-5.1); SODIUM 141 mmol/L (136-145); TCO2 15 mmol/L (25-35); TOTAL BILIRUBIN 0.21 mg/dL (0.20-1.00); TOTAL PROTEIN 5.3 g/dL (6.3-8.3)
--- NOTE | 2019-07-30 07:23 | Diag Imaging Result Doc PS360 ---
EXAM: CHEST-PORTABLE 07/30/2019 HISTORY: Pneumonia TECHNIQUE: AP portable at 0524 COMMENT: There is an endotracheal tube with its tip 2 cm above the escobar. The mediastinum is shifted somewhat to the right. There is an apparent right pleural effusion. There is interstitial opacity in the lower lung stratton bilaterally. There may be some slight improvement in this regard since 07/29/2019. IMPRESSION: Pulmonary edema plus minus pneumonia particularly in the right lower lobe. Right pleural effusion. Electronically signed by Gregg Dee 07/30/2019 7:21 AM
[2019-07-30] MEDS ORDERED: CALCIUM GLUCONATE 2 GM in NS 100 ML IV ONE (08:02)
[2019-07-30] MEDS ORDERED: MAGNESIUM SULFATE 2 GM/S.W.I. 2 GM/50 ML IVPB IV ONE (08:13)
[2019-07-30] MEDS: POTASSIUM CHLORIDE 20 MEQ/SWI 20 MEQ/100 ML IVPB IV SCH ×2 (09:00→11:11)
[2019-07-30] MEDS: SODIUM CHLORIDE 0.9% INJ SCH ×2 (09:28→20:29)
[2019-07-30] MEDS: PEPCID IV SCH ×2 (09:28→20:29)
[2019-07-30] MEDS: MAXIPIME 1 GM in NS 50 ML IV SCH ×2 (09:29→21:08)
[2019-07-30] MEDS: KEPPRA 500 MG in NS 100 ML IV SCH ×2 (09:31→20:28)
[2019-07-30 10:51] LABS: ALLEN TEST YES; BE -7.1 mmoll (-3.0-3.0); BLOOD TYPE ARTERIAL; HCO3-(ACT) 19.3 mmoll (20.0-26.0); METHB 1.3 % (0.0-1.5); O2HB 92.5 % (95.0-99.0); PCO2(98.6) 41 mmHg (35-45); PO2(98.6) 69 mmHg (60-100); SAMPLE BLOOD; SAO2 95.1 % (95.0-100.0); THB 12.3 g/dL (11.5-17.4); pH(98.6) 7.28 (7.35-7.45)
[2019-07-30 10:52] LABS: MODALITY VENTILATOR
--- NOTE | 2019-07-30 13:28 | PROGRESS NOTE ---
DATE: 07/30/2019 SUBJECTIVE: A 69-year-old female was seen in the ICU-[address]arer, admitted on 07/27/2019, unresponsive, acute respiratory failure on ventilator support, and Dr. Suggs is trying to wean off. The patient does not look good. She is not able to follow with verbal commands. Persistent cough, tachycardic. She was admitted for extensive pneumonia, atelectasis. REVIEW OF SYSTEMS: None reported, mostly from the nursing staff. PAST MEDICAL HISTORY: Reviewed. PAST SURGICAL HISTORY: Reviewed. MEDICINES: Reviewed. ALLERGIES: Reported to Dwayne Looney. PHYSICAL EXAMINATION: Vital signs: She is tachycardic, tachypneic. Blood pressure is 170/101 on CPAP trial off the Diprivan. HEENT: Tongue is protruding. Lungs: rhonchi. Heart: Distance heart sounds. Abdomen: Belly is soft. Genitourinary: [place] was placed. Extremities: Dry and in position. INVESTIGATIONS: White cell count 12.3, hematocrit 34.8, platelets 95,000. ABG, pH is 7.28, pCO2 41, PO2 69 on CPAP mode. Sodium 140, potassium 3.2, chloride 111, BUN 5, creatinine 0.5, calcium 6.8. LFTs were normal. Chest x-ray, poor inspiratory film, intubated, slightly rotated toward the right side. ASSESSMENT AND PLAN: 1. Acute respiratory failure. Not able to wean off on CPAP trial. 2. Conscious sedation. 3. Hypocalcemia. Replace the calcium gluconate. 4. Gastrointestinal prophylaxis with IV Pepcid. 5. Diabetes on sliding scale with insulin protocol. 6. Infectious Disease with antibiotics, currently on cefepime and vancomycin. 7. History of seizure, on Keppra. Repeat the labs in the morning. We will follow up. LEVEL OF DOCUMENTATION: 25 minutes. cc: MD Rolan Benjamin MD [facility]
[2019-07-30] MEDS: MORPHINE IV PRN ×2 (14:52→19:36)
[2019-07-31] MEDS: MORPHINE IV PRN ×3 (00:16→21:21)
[2019-07-31] MEDS ORDERED: VANCOMYCIN 1 GM/NS 1 GM/250 ML IVPB IV SCH (01:30)
[2019-07-31] MEDS: DUONEB (A & A) INH SCH ×6 (03:36→23:22)
[2019-07-31] MEDS: OFIRMEV 1000 MG/ISOTONIC SOLN 1,000 MG/100 ML BOTTLE IV PRN ×2 (04:13→12:55)
[2019-07-31 04:24] LABS: ALLEN TEST YES; BE -5.4 mmoll (-3.0-3.0); BLOOD TYPE ARTERIAL; HCO3-(ACT) 20.7 mmoll (20.0-26.0); O2(CT) 15.9 mL/dL (15.0-23.0); O2HB 97.3 % (95.0-99.0); PCO2(98.6) 33 mmHg (35-45); PO2(98.6) 114 mmHg (60-100); SAMPLE BLOOD; SAO2 99.9 % (95.0-100.0); SRATE 12 BPM; THB 11.5 g/dL (11.5-17.4); TVOL 500 mL; pH(98.6) 7.37 (7.35-7.45)
[2019-07-31 04:25] LABS: MODALITY VENTILATOR
[2019-07-31] MEDS ORDERED: D50W SYRINGE IV ONE ×2 (06:05→11:32)
[2019-07-31] MEDS: HUMALOG SUBQ SCH ×4 (06:08→20:18)
[2019-07-31 06:30] LABS: HEMATOCRIT 35.7 % (37.0-47.0); HEMOGLOBIN 11.1 g/dL (12.0-16.0); MCH 27.4 PG (27-31); MCHC 31.1 g/dL (33-37); MCV 88.1 FL (81-99); MPV 13.2 FL (7.4-10.4); RBC 4.05 XMIL (4.2-5.4); RDW 14.8 % (11.5-14.5); WBC 10.96 X1000 (4.8-10.8)
--- NOTE | 2019-07-31 06:49 | Diag Imaging Result Doc PS360 ---
EXAM: CHEST-PORTABLE HISTORY: Pneumonia TECHNIQUE: Single view COMPARISON: 07/30/2019 FINDINGS: Endotracheal tube in good position. The lungs are poorly expanded. Mild cardiomegaly and pulmonary edema. Small right pleural effusion. Infiltrates in the lower right lung. IMPRESSION: No interval improvement. Electronically signed by Buster Ragsdale 07/31/2019 6:47 AM
[2019-07-31 07:41] LABS: AGAP 16; ALB/GLOB RATIO 0.7; ALBUMIN 2.5 g/dL (3.5-5.0); ALKALINE PHOSPHATASE 80 U/L (32-104); BUN 3 mg/dL (8-22); CHLORIDE 106 mmol/L (98-107); COSMO 273; CREATININE 0.5 mg/dL (0.5-0.9); ESTIMATED GFR > 60; GLUCOSE 74 mg/dL (70-104); GOT 20 U/L (10-30); GPT 8 U/L (10-36); POTASSIUM 3.7 mmol/L (3.5-5.1); SODIUM 139 mmol/L (136-145); TCO2 17 mmol/L (25-35); TOTAL BILIRUBIN 0.35 mg/dL (0.20-1.00); TOTAL PROTEIN 5.9 g/dL (6.3-8.3)
[2019-07-31 08:46] LABS: AGAP 14; BUN 4 mg/dL (8-22); CALCIUM 7.8 mg/dL (8.8-10.2); CHLORIDE 105 mmol/L (98-107); COSMO 270; CREATININE 0.5 mg/dL (0.5-0.9); ESTIMATED GFR > 60; GLUCOSE 93 mg/dL (70-104); MAGNESIUM 1.7 mg/dL (1.5-2.7); POTASSIUM 3.5 mmol/L (3.5-5.1); SODIUM 137 mmol/L (136-145); TCO2 18 mmol/L (25-35)
[2019-07-31] MEDS: SODIUM CHLORIDE 0.9% INJ SCH ×2 (08:49→20:19)
[2019-07-31] MEDS: PEPCID IV SCH ×2 (08:49→20:19)
[2019-07-31] MEDS: KEPPRA 500 MG in NS 100 ML IV SCH ×2 (08:50→20:19)
[2019-07-31] MEDS: MAXIPIME 1 GM in NS 50 ML IV SCH ×2 (09:45→21:04)
[2019-07-31 10:37] LABS: ALLEN TEST YES; BE -5.6 mmoll (-3.0-3.0); BLOOD TYPE ARTERIAL; HCO3-(ACT) 20.6 mmoll (20.0-26.0); METHB 1.1 % (0.0-1.5); O2(CT) 16.2 mL/dL (15.0-23.0); O2HB 96.9 % (95.0-99.0); PCO2(98.6) 39 mmHg (35-45); PO2(98.6) 113 mmHg (60-100); SAMPLE BLOOD; SAO2 99.6 % (95.0-100.0); THB 11.8 g/dL (11.5-17.4); pH(98.6) 7.32 (7.35-7.45)
[2019-07-31 10:38] LABS: MODALITY VENTILATOR
[2019-07-31] MEDS: CLINIMIX E 4.25%-5% SOLUTION 1,000 ML IV SCH (11:54)
[2019-07-31] MEDS ORDERED: SOLU-MEDROL IV ONE (12:45)
[2019-07-31] MEDS: ZYVOX 600 MG/D5W 600 MG/300 ML IVPB IV SCH (13:05)
--- NOTE | 2019-07-31 14:32 | PROGRESS NOTE ---
DATE: 07/31/2019 SUBJECT: The patient is not getting better and attempted weaning protocol failed. The patient is extremely agitated, coughing. She is not eating and blood sugars dropping. I have given 2 D50, started on Clinimix. Chest x-ray today poor inspiratory film, mostly rotated towards the right side. No history was obtained. EXAM: Fever 100.8, tachycardic. Vitals are stable and position. Tongue is protruded. Poor air entry. Distant heart sounds. Belly is soft, nontender, contracted. INVESTIGATIONS: CBC: White cell count 10.9, hematocrit 35.7, platelets 119,000. ABG pH is 7.32, pCO2 39, PO2 113 on CPAP. Sodium 135, potassium 3.5, chloride 105, BUN 4, creatinine 0.5, calcium 7.5. LFTs were normal. Blood cultures negative. Sputum cultures 1+ no yeast present. ASSESSMENT AND PLAN: 1. Acute respiratory failure. Try to wean off and will follow with Dr. Suggs. 2. Hypoglycemia status post D50 twice, continue IV Clinimix. 3. History of seizure disorder on Keppra and aspiration bronchitis and on cefepime, Zyvox. Blood cultures were negative and will closely monitor. LEVEL OF DOCUMENTATION: 25 minutes. cc: MD Rolan Benjamin MD
[2019-08-01] MEDS: ZYVOX 600 MG/D5W 600 MG/300 ML IVPB IV SCH ×2 (00:01→11:59)
[2019-08-01] MEDS: MORPHINE IV PRN ×6 (01:32→23:10)
[2019-08-01] MEDS: DUONEB (A & A) INH SCH ×6 (03:11→23:04)
[2019-08-01 04:24] LABS: ALLEN TEST YES; BE 0.8 mmoll (-3.0-3.0); BLOOD TYPE ARTERIAL; HCO3-(ACT) 25.5 mmoll (20.0-26.0); METHB 1.3 % (0.0-1.5); O2(CT) 19.5 mL/dL (15.0-23.0); O2HB 96.8 % (95.0-99.0); PCO2(98.6) 39 mmHg (35-45); PO2(98.6) 113 mmHg (60-100); SAMPLE BLOOD; SAO2 99.1 % (95.0-100.0); SRATE 12 BPM; THB 14.2 g/dL (11.5-17.4); TVOL 500 mL; pH(98.6) 7.42 (7.35-7.45)
[2019-08-01 04:25] LABS: MODALITY VENTILATOR
[2019-08-01] MEDS: CLINIMIX E 4.25%-5% SOLUTION 1,000 ML IV SCH ×2 (04:39→21:47)
[2019-08-01] MEDS: HUMALOG SUBQ SCH ×4 (06:27→20:03)
--- NOTE | 2019-08-01 06:28 | Diag Imaging Result Doc PS360 ---
EXAM: CHEST-PORTABLE HISTORY: Pneumonia TECHNIQUE: Single view COMPARISON: 07/31/2019 FINDINGS: Decreased infiltrates and decreased atelectasis in the right base. Heart remains enlarged. A calcified mediastinal and hilar nodes. Endotracheal tube in good position. IMPRESSION: Interval improvement S'w Electronically signed by Buster Ragsdale 08/01/2019 6:26 AM
[2019-08-01 07:04] LABS: HEMATOCRIT 36.2 % (37.0-47.0); HEMOGLOBIN 11.9 g/dL (12.0-16.0); MCH 29.2 PG (27-31); MCHC 32.9 g/dL (33-37); MCV 88.7 FL (81-99); MPV 13.1 FL (7.4-10.4); RBC 4.08 XMIL (4.2-5.4); RDW 14.5 % (11.5-14.5); WBC 8.25 X1000 (4.8-10.8)
[2019-08-01 07:15] LABS: AGAP 13; ALB/GLOB RATIO 0.8; ALBUMIN 2.8 g/dL (3.5-5.0); ALKALINE PHOSPHATASE 81 U/L (32-104); BUN 10 mg/dL (8-22); CALCIUM 8.7 mg/dL (8.8-10.2); CHLORIDE 102 mmol/L (98-107); COSMO 278; CREATININE 0.5 mg/dL (0.5-0.9); ESTIMATED GFR > 60; GLUCOSE 149 mg/dL (70-104); GOT 19 U/L (10-30); GPT 9 U/L (10-36); POTASSIUM 4.4 mmol/L (3.5-5.1); SODIUM 138 mmol/L (136-145); TCO2 23 mmol/L (25-35); TOTAL BILIRUBIN 0.27 mg/dL (0.20-1.00); TOTAL PROTEIN 6.5 g/dL (6.3-8.3)
--- NOTE | 2019-08-01 09:26 | PROGRESS NOTE ---
DATE: 08/01/2019 Ms. Delgadillo is in about the same general condition. Every time we make an attempt to wean or try to do any suction, she just gets too agitated, blood pressure goes up. It happened earlier. She was given morphine, and she calmed down after that. She is on 40% O2 on the ventilator. Her lungs still reveal some basal congestion. Chest x-ray shows some improvement. CBC shows white count 8.25, hemoglobin 11.9. Electrolytes status is stable. Overall condition is really unchanged. We are going to try to get a Palliative Care consult, who can talk to the family. There is a son involved with the family; however, I have not talked to him yet. It is very hard to approach her IV line; hence, we are going to try to get a PICC line on her. cc: Rolan Shearer MD
[2019-08-01 09:44] LABS: INR 1.12; PROTIME 14.5 Seconds (11.0-16.0)
[2019-08-01] MEDS: MAXIPIME 1 GM in NS 50 ML IV SCH ×2 (10:06→21:47)
[2019-08-01] MEDS: KEPPRA 500 MG in NS 100 ML IV SCH ×2 (10:06→20:03)
[2019-08-01] MEDS: PEPCID IV SCH ×2 (10:12→20:04)
[2019-08-01] MEDS ORDERED: NS 250 ML ONE (13:17)
[2019-08-01] MEDS: SODIUM CHLORIDE 0.9% INJ SCH (20:04)
--- NOTE | 2019-08-01 21:04 | PULMONOLOGY PROGRESS NOTE ---
DATE: 08/01/2019 SUBJECTIVE: Patient stares into space. This patient has a vacant stare. She does not track the examiner. Nurses report her blood pressure does go up when she is stimulated or when she hears voices. She remains on mechanical ventilation. OBJECTIVE: Vital Signs: Maximum temperature in the last 24 hours 100.8 degrees. Blood pressure 133/67, heart rate 89, respiratory rate 18, oxygen saturation 97%. HEENT: Pupils are equal and reactive. Oropharynx appears clear. Neck: Is supple. Chest: Reveals coarse rhonchi bilaterally. Cardiac exam: S1, S2. Abdomen: Is soft with diminished bowel sounds. Extremities: Without edema. LABORATORIES: Chest x-ray reveals improving right base. Microbiology reveals no new data. Arterial blood gas reveals a pH 7.42, pCO2 of 39, pO2 of 113. Sodium 138, potassium 4.4, chloride 102, bicarbonate 23, BUN 10, creatinine 0.5, glucose 149. IMPRESSION: A 69-year-old with 1. Aspiration pneumonia. 2. Acute hypoxemic respiratory failure. 3. Dementia. 4. Continued failure of weaning attempts. DISCUSSION: A 69-year-old with problems outlined above. She is currently a Do Not Resuscitate level 2, but remains on mechanical ventilation. She is failing weaning, but radiographically is improving. RECOMMENDATION: 1. Continue to address end of life discussions. Nurse reports there is a palliative care consult in place to discuss possible compassionate extubation. 2. Continue antibiotics. 3. Daily weaning trials. TIME SPENT IN CRITICAL CARE MANAGEMENT: 30+ minutes. cc: MD Rolan Toro MD
[2019-08-02] MEDS: ZYVOX 600 MG/D5W 600 MG/300 ML IVPB IV SCH ×2 (00:19→12:06)
[2019-08-02] MEDS: DUONEB (A & A) INH SCH ×2 (03:28→07:33)
[2019-08-02] MEDS: MORPHINE IV PRN ×2 (04:25→09:50)
[2019-08-02 04:28] LABS: ALLEN TEST YES; BE 3.7 mmoll (-3.0-3.0); BLOOD TYPE ARTERIAL; HCO3-(ACT) 27.8 mmoll (20.0-26.0); METHB 1.3 % (0.0-1.5); O2(CT) 14.7 mL/dL (15.0-23.0); O2HB 96.7 % (95.0-99.0); PCO2(98.6) 50 mmHg (35-45); PO2(98.6) 98 mmHg (60-100); SAMPLE BLOOD; SRATE 8 BPM; THB 10.7 g/dL (11.5-17.4); TVOL 500 mL; pH(98.6) 7.38 (7.35-7.45)
[2019-08-02 04:32] LABS: MODALITY VENTILATOR
[2019-08-02] MEDS: HUMALOG SUBQ SCH ×3 (06:12→19:30)
[2019-08-02 06:36] LABS: HEMATOCRIT 32.3 % (37.0-47.0); HEMOGLOBIN 10.3 g/dL (12.0-16.0); MCH 28.7 PG (27-31); MCHC 31.9 g/dL (33-37); MPV 12.7 FL (7.4-10.4); RBC 3.59 XMIL (4.2-5.4); RDW 14.4 % (11.5-14.5); WBC 10.57 X1000 (4.8-10.8)
--- NOTE | 2019-08-02 07:20 | Diag Imaging Result Doc PS360 ---
EXAM: CHEST-PORTABLE 08/02/2019 HISTORY: Pneumonia TECHNIQUE: AP portable at 0535 COMMENT: There is cardiomegaly. There is an endotracheal tube with its tip at the thoracic inlet. There is increased volume loss in the right lower lobe compared to 08/01/2019. This is probably due to atelectasis. IMPRESSION: Right lower lobe atelectasis versus pneumonia. Cardiomegaly. Electronically signed by Gregg Dee 08/02/2019 7:18 AM
[2019-08-02 07:27] LABS: AGAP 11; ALB/GLOB RATIO 0.8; ALBUMIN 2.6 g/dL (3.5-5.0); ALKALINE PHOSPHATASE 65 U/L (32-104); BUN 13 mg/dL (8-22); CALCIUM 7.8 mg/dL (8.8-10.2); CHLORIDE 102 mmol/L (98-107); COSMO 280; CREATININE 0.4 mg/dL (0.5-0.9); ESTIMATED GFR > 60; GLUCOSE 134 mg/dL (70-104); GOT 16 U/L (10-30); GPT 8 U/L (10-36); POTASSIUM 3.4 mmol/L (3.5-5.1); SODIUM 139 mmol/L (136-145); TCO2 26 mmol/L (25-35); TOTAL BILIRUBIN 0.19 mg/dL (0.20-1.00); TOTAL PROTEIN 5.8 g/dL (6.3-8.3)
[2019-08-02] MEDS ORDERED: POTASSIUM CHLORIDE 40 MEQ/SWI 40 MEQ/100 ML IVPB IV ONE (08:30)
[2019-08-02] MEDS: SODIUM CHLORIDE 0.9% INJ SCH (08:38)
[2019-08-02] MEDS: KEPPRA 500 MG in NS 100 ML IV SCH ×2 (08:38→21:20)
[2019-08-02] MEDS: PEPCID IV SCH (08:38)
[2019-08-02] MEDS ORDERED: ATROPINE 1 % OPHTH SOLN SL PRN (09:22)
[2019-08-02] MEDS ORDERED: ATIVAN IV PRN (09:22)
--- NOTE | 2019-08-02 10:00 | PROGRESS NOTE ---
DATE: 08/02/2019 continues to be on the ventilator. She has right lower lobe atelectasis and pneumonia, which is slowly improving. Her ABGs this morning reveal a pH 7.38, pCO2 50, and PO2 is 98. She is on 40% FiO2. Potassium was 3.4. Otherwise, the chemistry looks about normal except for hypoproteinemia. The palliative care nurses talked to the family members, and they are going to talk about DNR and wound vac's. We will extubate her with permission from Dr. Pryor. We probably will see progress after that. -5 cc: Rolan Shearer MD
[2019-08-02] MEDS: MAXIPIME 1 GM in NS 50 ML IV SCH ×2 (11:19→21:35)
[2019-08-02] MEDS: DUONEB (A & A) INH PRN ×4 (11:24→23:27)
[2019-08-03] MEDS: ZYVOX 600 MG/D5W 600 MG/300 ML IVPB IV SCH ×3 (01:06→23:59)
[2019-08-03] MEDS: MORPHINE IV PRN ×3 (01:09→23:05)
[2019-08-03] MEDS: HUMALOG SUBQ SCH ×4 (02:43→16:09)
--- NOTE | 2019-08-03 04:41 | PULMONOLOGY PROGRESS NOTE ---
DATE: 08/02/2019 SUBJECTIVE: The patient's eyes are open. She does not follow commands. She appears to be comfortable when placed on a spontaneous breathing trial. OBJECTIVE: Vital Signs: The patient has been afebrile for the last 24 hours. Blood pressure is 138/75, heart rate is 92, respiratory rate is 22, oxygen saturation is 100%. HEENT: Pre equal. Oropharynx appears clear. Neck: Supple. Chest: Reveals prolonged expiratory phase with occasional rhonchi. Cardiac: S1, S2. Abdomen: Soft. Extremities: Without edema. LABORATORY DATA: Chest x-ray reveals atelectasis at the right lung base. Arterial blood gas reveals a pH of 7.38, pCO2 of 50, PO2 of 98. IMPRESSION: A 69-year-old with: 1. Aspiration pneumonia. 2. Acute hypoxemic respiratory failure. 3. Dementia. DISCUSSION: A 69-year-old with the problems outlined above. Her overall prognosis has been discussed with the family by Dr. Shearer and with Federica Mccord the Palliative Care nurse. All agree with the plans for a compassionate extubation. PLAN: 1. Initiate plans for compassionate extubation. The patient will be given morphine as needed for comfort. 2. Agree with current resuscitation status. cc: MD Rolan Toro MD
[2019-08-03] MEDS: DUONEB (A & A) INH PRN ×3 (07:27→15:08)
[2019-08-03] MEDS: KEPPRA 500 MG in NS 100 ML IV SCH ×2 (09:28→23:07)
[2019-08-03] MEDS: MAXIPIME 1 GM in NS 50 ML IV SCH ×2 (09:29→23:25)
--- NOTE | 2019-08-03 09:36 | PROGRESS NOTE ---
DATE: 08/03/2019 Ms. Delgadillo was extubated yesterday. Her vital signs are stable. Yesterday's chest x-ray had shown right lower lobe pneumonia with atelectasis. She is more alert today. Cultures have been negative. Blood sugar was 87. I am going to put her on clear liquids today. Overall condition is unchanged. She is DNR1 and mostly comfort measures. cc: Rolan Shearer MD
[2019-08-03] MEDS ORDERED: NS 500 ML ONE (09:48)
[2019-08-04] MEDS: HUMALOG SUBQ SCH ×5 (02:24→20:13)
[2019-08-04] MEDS: MORPHINE IV PRN ×2 (09:06→14:46)
[2019-08-04] MEDS: KEPPRA 500 MG in NS 100 ML IV SCH ×2 (09:07→20:03)
[2019-08-04] MEDS: MAXIPIME 1 GM in NS 50 ML IV SCH ×2 (09:07→21:27)
[2019-08-04] MEDS: DUONEB (A & A) INH PRN ×2 (09:27→16:15)
--- NOTE | 2019-08-04 09:35 | Diag Imaging Result Doc PS360 ---
EXAM: CHEST-2 VIEWS HISTORY: pneumonia follow up TECHNIQUE: Chest two views COMPARISON: 08/02/2019 FINDINGS: No change in the right-sided PICC line. Poor inspiratory effort. Heart is mildly enlarged. No pleural effusions. There calcified mediastinal and hilar nodes. Decreased basilar infiltrates. IMPRESSION: Interval improvement Electronically signed by Buster Ragsdale 08/04/2019 9:33 AM
[2019-08-04 10:21] LABS: BASO# 0.04 X1000 (0.0-0.2); BASO% 0.4 % (0.0-0.8); EOS# 0.28 X1000 (0.0-0.7); EOS% 2.8 % (0.0-10.0); IMM GRAN# 0.05 X1000 (0.0-0.04); IMM GRAN% 0.5 % (0.0-0.5); LYMPH% 34.6 % (20.5-51.1); MCH 27.2 PG (27-31); MCHC 30.8 g/dL (33-37); MCV 88.4 FL (81-99); MONO# 1.77 X1000 (0.11-0.59); MPV 11.4 FL (7.4-10.4); NEUT% 43.7 % (42.2-75.2); PLT 230 X1000 (130-400); RBC 4.41 XMIL (4.2-5.4); RDW 13.7 % (11.5-14.5); WBC 9.84 X1000 (4.8-10.8)
[2019-08-04 10:57] LABS: AGAP 13; BUN 7 mg/dL (8-22); CALCIUM 8.8 mg/dL (8.8-10.2); CHLORIDE 97 mmol/L (98-107); COSMO 273; CREATININE 0.5 mg/dL (0.5-0.9); ESTIMATED GFR > 60; GLUCOSE 115 mg/dL (70-104); POTASSIUM 3.7 mmol/L (3.5-5.1); SODIUM 137 mmol/L (136-145); TCO2 27 mmol/L (25-35)
--- NOTE | 2019-08-04 12:35 | PROGRESS NOTE ---
DATE: 08/04/2019 Ms. Delgadillo is not doing well. She is aspirating on her clear liquids and we have not given her any oral medications. We are checking with the family about PEG tube placement and if they do not want the PEG tube, then we will transfer her to [facility] back again and ask for hospice to see her. -1 cc: Rolan Shearer MD
[2019-08-04] MEDS: ZYVOX 600 MG/D5W 600 MG/300 ML IVPB IV SCH (13:18)
[2019-08-05] MEDS: HUMALOG SUBQ SCH ×4 (05:59→21:44)
[2019-08-05] MEDS: KEPPRA 500 MG in NS 100 ML IV SCH ×2 (08:33→20:18)
[2019-08-05] MEDS ORDERED: DIPRIVAN 1% ONE (08:55)
[2019-08-05] MEDS ORDERED: XYLOCAINE-MPF 2% ONE (08:56)
[2019-08-05] MEDS ORDERED: PRECEDEX ONE (09:16)
[2019-08-05] MEDS: MAXIPIME 1 GM in NS 50 ML IV SCH ×2 (09:18→21:54)
[2019-08-05] MEDS ORDERED: VERSED ONE (10:09)
[2019-08-05] MEDS: ZYVOX 600 MG/D5W 600 MG/300 ML IVPB IV SCH ×2 (13:05)
--- NOTE | 2019-08-05 13:28 | PROGRESS NOTE ---
DATE: 08/05/2019 It is about lunchtime and she just came back to the room after the PEG tube and she is very drowsy. She is almost stuporous at the present time under the effect of anesthesia. We are going to gradually start the feeding. She probably needs Glucerna. She is diabetic and we are going to consult dietitian for starting the feeding through the PEG tube. We will continue to watch her here for the next day or 2 and then probably discharge her on Thursday to [facility]. cc: Rolan Shearer MD
[2019-08-05] MEDS: DUONEB (A & A) INH PRN ×2 (15:26→20:05)
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
[2019-08-06] MEDS: ZYVOX 600 MG/D5W 600 MG/300 ML IVPB IV SCH ×3 (01:59→23:44)
[2019-08-06] MEDS: HUMALOG SUBQ SCH ×4 (06:04→20:26)
[2019-08-06] MEDS: DUONEB (A & A) INH PRN ×4 (07:42→19:08)
[2019-08-06 08:25] LABS: AGAP 16; ALBUMIN 3.2 g/dL (3.5-5.0); BUN 7 mg/dL (8-22); CALCIUM 9.1 mg/dL (8.8-10.2); CHLORIDE 100 mmol/L (98-107); COSMO 278; CREATININE 0.5 mg/dL (0.5-0.9); ESTIMATED GFR > 60; GLUCOSE 107 mg/dL (70-104); MAGNESIUM 1.6 mg/dL (1.5-2.7); PHOSPHORUS 2.5 mg/dL (2.7-4.5); POTASSIUM 3.4 mmol/L (3.5-5.1); SODIUM 140 mmol/L (136-145); TCO2 24 mmol/L (25-35)
[2019-08-06] MEDS ORDERED: MIRALAX PO SCH (09:00)
[2019-08-06] MEDS: KEPPRA 500 MG in NS 100 ML IV SCH ×2 (09:41→20:26)
[2019-08-06] MEDS: MAXIPIME 1 GM in NS 50 ML IV SCH ×2 (09:41→22:17)
[2019-08-06] MEDS ORDERED: MILK OF MAGNESIA PO PRN (10:04)
[2019-08-06] MEDS ORDERED: CALMOSEPTINE OINTMENT TOP PRN (10:04)
[2019-08-06] MEDS ORDERED: RISPERDAL PO SCH ×3 (10:15→21:00)
[2019-08-06] MEDS ORDERED: FOLIC ACID PO SCH (10:15)
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
[2019-08-06] MEDS ORDERED: KLOR-CON PO SCH (13:00)
[2019-08-06] MEDS ORDERED: DEPAKOTE PO SCH ×2 (14:00→21:00)
[2019-08-06] MEDS ORDERED: MILK OF MAGNESIA PEG PRN (15:04)
[2019-08-06] MEDS: POTASSIUM CHLORIDE 10% LIQUID PEG SCH (18:26)
[2019-08-06] MEDS: DEPAKENE LIQUID PEG SCH (20:25)
[2019-08-06] MEDS: RISPERDAL PEG SCH (20:25)
[2019-08-06] MEDS: PERICOLACE PEG SCH (20:26)
[2019-08-06] MEDS ORDERED: PERICOLACE PO SCH (21:00)
[2019-08-06] MEDS ORDERED: DEPAKENE LIQUID PO SCH (21:00)
[2019-08-07] MEDS: DEPAKENE LIQUID PEG SCH ×4 (05:42→20:11)
[2019-08-07] MEDS: HUMALOG SUBQ SCH ×4 (05:59→20:11)
[2019-08-07] MEDS ORDERED: DEPAKENE LIQUID PO SCH (07:00)
[2019-08-07] MEDS: DUONEB (A & A) INH PRN ×5 (07:47→20:03)
[2019-08-07 07:56] LABS: BASO# 0.04 X1000 (0.0-0.2); BASO% 0.4 % (0.0-0.8); HEMATOCRIT 39.6 % (37.0-47.0); HEMOGLOBIN 12.4 g/dL (12.0-16.0); IMM GRAN# 0.05 X1000 (0.0-0.04); IMM GRAN% 0.5 % (0.0-0.5); LYMPH# 2.99 X1000 (1.2-3.4); LYMPH% 30.1 % (20.5-51.1); MCH 27.3 PG (27-31); MCHC 31.3 g/dL (33-37); MONO# 1.82 X1000 (0.11-0.59); MONO% 18.3 % (1.7-9.3); MPV 11.3 FL (7.4-10.4); NEUT# 4.83 X1000 (1.4-6.5); NEUT% 48.7 % (42.2-75.2); PLT 269 X1000 (130-400); RBC 4.55 XMIL (4.2-5.4); RDW 13.7 % (11.5-14.5); WBC 9.93 X1000 (4.8-10.8)
[2019-08-07 08:15] LABS: AGAP 11; ALB/GLOB RATIO 0.8; ALKALINE PHOSPHATASE 88 U/L (32-104); BUN 8 mg/dL (8-22); CHLORIDE 101 mmol/L (98-107); COSMO 280; CREATININE 0.5 mg/dL (0.5-0.9); ESTIMATED GFR > 60; GLUCOSE 139 mg/dL (70-104); GOT 21 U/L (10-30); GPT 12 U/L (10-36); MAGNESIUM 1.9 mg/dL (1.5-2.7); POTASSIUM 3.6 mmol/L (3.5-5.1); SODIUM 140 mmol/L (136-145); TCO2 28 mmol/L (25-35); TOTAL BILIRUBIN 0.33 mg/dL (0.20-1.00); TOTAL PROTEIN 6.9 g/dL (6.3-8.3)
[2019-08-07] MEDS ORDERED: RISPERDAL PO SCH (09:00)
[2019-08-07] MEDS: POTASSIUM CHLORIDE 10% LIQUID PEG SCH ×3 (10:51→17:45)
[2019-08-07] MEDS: RISPERDAL PEG SCH ×2 (10:51→20:11)
[2019-08-07] MEDS: FOLIC ACID PEG SCH (10:51)
[2019-08-07] MEDS: MIRALAX PEG SCH (10:51)
[2019-08-07] MEDS: KEPPRA 500 MG in NS 100 ML IV SCH ×2 (10:51→20:11)
[2019-08-07] MEDS: MAXIPIME 1 GM in NS 50 ML IV SCH ×2 (10:52→21:38)
[2019-08-07] MEDS: ZYVOX 600 MG/D5W 600 MG/300 ML IVPB IV SCH ×2 (11:40→23:44)
--- NOTE | 2019-08-07 11:55 | PROGRESS NOTE ---
DATE: 08/07/2019 SUBJECTIVE: Ms. Delgadillo is doing fair. The patient is lying in the bed, not communicating. Tolerating PEG tube feeding well. No fever or chills. No nausea or vomiting. At times, tachycardic. O2 saturation is satisfactory. OBJECTIVE: Her vital signs noted. Neck: Supple. No JVD. Lungs: Bibasilar crepitations. Heart: S1 and S2 heard. At times, tachycardia. Abdomen: Soft, globular. Bowel sounds present. PEG tube is in place. GLASS CLEANING MACHINE TENDER: Alert, awake. The patient is in bed, uncooperative for detailed exam. Laboratory Data: Done today, WBC count 9.93, hemoglobin 12.4, hematocrit 39.6, platelets 269,000. Electrolytes fairly benign. Potassium improved to 3.6, blood sugar results reviewed. Magnesium 1.9. PROBLEMS: Include: 1. Status post hypoxemic respiratory failure and mechanical ventilation. The patient is off the mechanical ventilation now. 2. Aspiration pneumonia, on antibiotics. 3. Diabetes mellitus. 4. Dementia. 5. Dysphagia. The patient had a percutaneous endoscopic gastrostomy tube. PLAN: Overall prognosis fair to guarded. We will continue current treatment. The plan is to discharge patient to half-way tomorrow if clinical condition permits. cc: MD Rolan Main MD
[2019-08-07] MEDS: PERICOLACE PEG SCH (20:11)
[2019-08-08] MEDS: DUONEB (A & A) INH PRN (00:01)
[2019-08-08] MEDS: DEPAKENE LIQUID PEG SCH ×2 (06:06→14:08)
[2019-08-08] MEDS: HUMALOG SUBQ SCH ×2 (06:18→11:42)
--- NOTE | 2019-08-08 08:42 | PROGRESS NOTE ---
DATE: 08/08/2019 Ms. Delgadillo is doing fairly well. She is getting the PEG tube feeding. General condition is about the same. She is almost unresponsive. The pneumonia appears to be much better. We are going to send her back to [facility] today. cc: Rolan Shearer MD
--- NOTE | 2019-08-08 09:17 | DISCHARGE SUMMARY ---
ADMISSION DATE: 07/27/2019 DISCHARGE DATE: 08/08/2019 HISTORY OF PRESENT ILLNESS AND HOSPITAL COURSE: Ms. Delgadillo, who is a 69-year-old, female who has mental retardation and dementia and with COPD, diabetes, was admitted with acute respiratory failure. She had severe aspiration. The patient had to be intubated. X-ray showed bilateral atelectasis. X-ray of the cervical spine and head showed no acute fracture and no hemorrhage in the brain. The chest x-rays were done on practically a daily bases. Arterial blood gases initially showed hypoxia. Then they were fairly satisfactory. She was intubated. She was not breathing on her own. The patient was intubated, placed on the ventilator. She had bilateral pneumonia. She was placed on IV antibiotics. She continued to do poorly. For about 7 days, she did not improve and so the family decided about the palliative care. They decided to extubate her. Then she was ready to be discharged to a [facility]. However, the family wanted the PEG tube placed in. It was placed in by Dr. Campbell and then she was tolerating the feeding well. She is on Glucerna 40 mL and she will be discharged today to follow up with healthcare. Overall prognosis is poor. She is Do Not Resuscitate 1 and only comfort measures. FINAL DIAGNOSES: 1. Severe aspiration pneumonia. 2. Acute respiratory failure with encephalopathy. 3. Seizure disorder. cc: Rolan Shearer MD
[2019-08-08] MEDS: FOLIC ACID PEG SCH (10:05)
[2019-08-08] MEDS: RISPERDAL PEG SCH (10:05)
[2019-08-08] MEDS: MAXIPIME 1 GM in NS 50 ML IV SCH (10:06)
[2019-08-08] MEDS: POTASSIUM CHLORIDE 10% LIQUID PEG SCH (10:06)
[2019-08-08] MEDS: KEPPRA 500 MG in NS 100 ML IV SCH (10:06)
[2019-08-08] MEDS: MIRALAX PEG SCH (10:06)
[2019-08-08 14:05] VITALS: BP 150/72
[2019-08-08] MEDS ORDERED: POTASSIUM CHLORIDE 10% LIQUID PEG SCH (15:00)
--- NOTE | 2019-08-15 10:06 | DISCHARGE SUMMARY ---
ADMISSION DATE: 07/27/2019 DISCHARGE DATE: 08/08/2019 DISCHARGE SUMMARY ADDENDUM: Ms. Delgadillo was admitted with aspiration pneumonia, and sepsis was not rule out. It was a strong possibility. cc: Rolan Shearer MD
== END 2019-08-08 14:51 | DRG 870 ==
LOC: EDBD → SUPCPDRO → ED 18:48 → SUATTDRO 21:57 → ICU 21:57 → 3N 08-02 14:44
PROVIDERS: ADMIT Internal Medicine; ATTEND Internal Medicine